=== PATIENT | female | born 2000 | race Caucasian/White ===

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

== ENCOUNTER → 2022-02-19 | Outpatient (CLI) | payer OTHER, SELFPAY ==
[2022-02-18 13:11] LABS: Chlamydia Trachomatis by PCR Negative (Negative); Neisserai gonorrhoeae by PCR Negative (Negative); Probe Check PASS; Sample Adequacy Control PASS; Specimen Processing Control PASS
== END | disposition home or self-care (01) ==
LOC: LABSPEC 10:13
PROVIDERS: PCP Pediatrics; Visit Provider Nurse Practitioner Women's Health
DX: Z11.3 Encounter for screening for infections with a predominantly sexual mode of transmission (principal)
CPT/HCPCS: 87491; 87591

== ENCOUNTER → 2024-09-30 | Outpatient (CLI) | payer BC, SELFPAY ==
[2024-10-05 12:45] LABS: HPV Reflexed? NOT INDICATED
== END | disposition home or self-care (01) ==
LOC: LABSPEC 11:50
PROVIDERS: PCP Pediatrics; Referring Provider Nurse Practitioner Women's Health; Visit Provider Nurse Practitioner Women's Health
DX: Z12.4 Encounter for screening for malignant neoplasm of cervix (principal)
CPT/HCPCS: 88175; G0145

== ENCOUNTER → 2025-03-09 | Outpatient (CLI) | payer BC, SELFPAY ==
--- OUTSIDE RECORDS SUMMARY | 2025-03-09 19:02 | XMS RPT_ITS | CCD ---
Author Organization [facility] Care Team Providers Care Dean Of Instruction Name Role Phone Bianca HECTOR, Arben Renee Unavailable Marialuisa Zayas MD Primary Care Provider Marialuisa Zayas MD Primary Care Provider MARIALUISA ZAYAS Primary Care Unavailable TRUPTI, CINTHIA Attending Unavailable MARIALUISA ZAYAS Attending Unavailable MARIALUISA ZAYAS Primary Care Unavailable MARIALUISA ZAYAS Primary Care Unavailable CINTHIA LYLES Attending Unavailable MARIALUISA ZAYAS Primary Care Unavailable MARIALUISA ZAYAS Primary Care Unavailable CINTHIA LYLES Referring Unavailable Dr. Marialuisa Zayas MD Primary Care Provider Dr. Marialuisa Zayas MD Referring Provider Candida SATELLITE PROJECT SITE MONITOR-C, Abby Attending Provider Candida SATELLITE PROJECT SITE MONITOR-C, Abby Referring Provider Marialuisa Zayas Primary Care Unavailable [place] SATELLITE PROJECT SITE MONITOR, Abby Referring Unavailable [place] SATELLITE PROJECT SITE MONITOR, Abby Attending Unavailable Marialuisa Zayas Primary Care Unavailable [place] SATELLITE PROJECT SITE MONITOR, Abby Attending Unavailable Marialuisa Zayas Referring Unavailable Marialuisa Zayas Referring Unavailable Marialuisa Zayas Primary Care Unavailable [place] SATELLITE PROJECT SITE MONITOR, Abby Attending Unavailable Dr. Marialuisa Zayas MD Primary Care Provider Dr. Marialuisa Zayas MD Referring Provider [place] SATELLITE PROJECT SITE MONITOR-C, Abby Attending Provider Medications Current Medications Medication Drug Class(es) Dates Sig (Normalized) Sig (Original) DULoxetine 20 mg delayed release oral capsule (19 sources) Serotonin and Norepinephrine Reuptake Inhibitor Start: 12-06-2022 End: 12-27-2022 take 1 capsule by mouth once daily DULoxetine (CYMBALTA) 20 mg capsule Take 1 capsule by mouth once daily for 21 days. 21 capsule 0 12/06/2022 12/27/2022 Active Start: 10-06-2019 End: 03-09-2025 take 1 capsule by mouth once daily Duloxetine 30 mg capsule,delayed release(DR/EC) Discontinued 30 mg PO DAILY February 09, 2020 2:45pm March 09, 2025 2:30pm Comment on above: Take 1 capsule by mo ut once daily. TAKE 1 CAPSULE ONCE DAILY Take 1 capsule by mo [facility] once daily for 21 days. metroNIDAZOLE 500 mg oral tablet (5 sources) Nitroimidazole Antimicrobial Start: 02-01-20 End: 02-08-20 take 1 tablet by mouth twice daily metroNIDAZOLE (FLAGYL) 500 mg tablet Take 1 tablet by mouth twice daily for 7 days. 14 tablet 0 01/31/2022 02/07/2022 Active Comment on above: Take 1 tablet by [facility] twice daily for 7 days. norethindrone acetate 5 mg oral tablet (1 source) Start: 03-09-20 Norethindrone Acetate 5 mg tablet Active 5 mg PO .COMPLEX 45 0 March 09, 2025 12:00am 5 mg PO tid until bleeding stops X 24 hr then bid to finish Rx Completed/Discontinued Medications Medication Drug Class(es) Dates Sig (Normalized) Sig (Original) amoxicillin 500 mg oral capsule (2 sources) Penicillin-class Antibacterial Start: 12-13-2020 End: 12-23-2020 take 2 capsules by mouth twice daily Amoxicillin 500 mg capsule Discontinued 1000 mg PO TWICE A DAY 40 10 0 December 13, 2020 12:00am December 22, 2020 12:00am December 23, 2020 12:01am control (2 sources) Start: 09-01-2019 End: 02-09-2020 control Discontinued 1 {tbl} PO DAILY 0 September 01, 2019 1:00am February 09, 2020 2:45pm Start: 09-01-2019 End: 02-09-2020 control Discontinued 1 {tbl} PO DAILY September 01, 2019 1:00am February 09, 2020 2:45pm doxycycline monohydrate 100 mg oral capsule (2 sources) Tetracycline-class Drug Start: 12-14-2018 End: 09-01-2019 take 1 capsule by mouth twice daily Doxycycline Monohydrate 100 mg capsule Discontinued 100 mg PO TWICE A DAY 20 December 14, 2018 12:00am September 01, 2019 3:59pm erythromycin 0.005 mg/mg ophthalmic ointment (2 sources) Macrolide, Macrolide Antimicrobial Start: 01-14-2021 End: 02-12-2021 Erythromycin 5 mg/gram (0.5 %) ointment Discontinued 0.5 [in_us] OPHTHALMIC TWICE A DAY 1 January 14, 2021 12:00am February 12, 2021 9:33am bilateral eye blepharitis Norethindrone-Ethi n Estradiol (20 sources) Estrogen Start: 08-30-2022 End: 03-09-2025 Norethindrone-Eth in Estradiol (Pirmella) 1-35 mg-mcg tablet Discontinued 1 {tbl} PO DAILY 84 August 30, 2022 2:34pm March 09, 2025 7:28am Start: 08-30-2022 Norethindrone- Ethin Estradiol (Pirmella) 1-35 mg-mcg tablet Active 1 {tbl} PO DAILY 84 August 30, 2022 2:34pm Start: 02-18-2022 End: 08-30-2022 Norethindrone-Ethin Estradio l (Pirmella) 1-35 mg-mcg tablet Discontinued 1 {tbl} PO DAILY 84 February 18, 2022 9:37am August 30, 2022 2:35pm Start: 02-18-2022 End: 08-30-2022 Norethindrone-Ethin Estradio l (Pirmella) 1-35 mg-mcg tablet Discontinued 1 {tbl} PO DAILY 84 February 18, 2022 9:37am August 30, 2022 2:35pm Start: 12-10-2021 End: 02-18-2022 Norethindrone-Ethin Estradio l (Pirmella) 1-35 mg-mcg tablet Discontinued 1 {tbl} PO DAILY 31 08December 10, 2021 1:57pm February 18, 2022 9:38am Start: 12-10-2021 End: 02-18-2022 Norethindrone-Ethin Estradio l (Pirmella) 1-35 mg-mcg tablet Discontinued 1 {tbl} PO DAILY December 10, 2021 1:57pm February 18, 2022 9:38am Start: 07-04-2021 End: 12-10-2021 Norethindrone-Ethin Estradio l (Pirmella) 1-35 mg-mcg tablet Discontinued 1 {tbl} PO DAILY 84 2 July 04, 2021 9:35am December 10, 2021 1:57pm Start: 07-04-2021 End: 12-10-2021 Norethindrone-Ethin Estradio l (Pirmella) 1-35 mg-mcg tablet Discontinued 1 {tbl} PO DAILY 84 July 04, 2021 9:35am December 10, 2021 1:57pm Start: 04-03-2021 take 1 tablet by sylvia th once daily PIRMELLA 1-35 mg-mcg per tablet Indications: Encounter for surveillance of contraceptive pills , Acne, unspecified acne type Take 1 tablet by mouth once daily. 3 Package 0 04/03/2021 Active Start: 02-12-2021 End: 07-04-2021 Norethindrone-Ethin Estradio l (Pirmella) 1-35 mg-mcg tablet Discontinued 1 {tbl} PO DAILY 84 0 February 12, 2021 9:42am July 04, 2021 9:35am Start: 02-12-2021 End: 07-04-2021 Norethindrone-Ethin Estradio l (Pirmella) 1-35 mg-mcg tablet Discontinued 1 {tbl} PO DAILY 84 February 12, 2021 9:42am July 04, 2021 9:35am Start: 01-02-2021 End: 02-12-2021 Norethindrone-Ethin Estradio l (Pirmella) 1-35 mg-mcg tablet Discontinued 1 {tbl} PO DAILY 84 0 January 02, 2021 11:09am February 12, 2021 9:42am Start: 01-02-2021 End: 02-12-2021 Norethindrone-Ethin Estradio l (Pirmella) 1-35 mg-mcg tablet Discontinued 1 {tbl} PO DAILY 84 January 02, 2021 11:09am February 12, 2021 9:42am Start: 02-09-2020 End: 01-02-2021 Norethindrone-Ethin Estradio l (Pirmella) 1-35 mg-mcg tablet Discontinued 1 {tbl} PO DAILY 84 4 February 09, 2020 12:00am January 02, 2021 11:09am Start: 02-09-2020 End: 01-02-2021 Norethindrone-Ethin Estradio l (Pirmella) 1-35 mg-mcg tablet Discontinued 1 {tbl} PO DAILY 84 February 09, 2020 12:00am January 02, 2021 11:09am Comment on above: Take 1 tablet by sylvia once daily. ISOtretinoin 20 mg oral capsule (3 sources) Retinoid Start: 02-12-2021 End: 02-18-2022 Isotretinoin (Accutane) 20 mg capsule Discontinued PO February 12, 2021 12:00am February 18, 2022 9:32am Start: 06-02-2019 ISOTRETINOIN 3 0 MG CAPS one time a day ISOTRETINOIN [id number] Arben Valenzuela MD methylPREDNISolone 4 mg oral tablet (2 sources) Corticosteroid Start: 02-10-2023 End: 09-30-2024 take 1 tablet by mouth once Methylprednisolone (Medrol (Franki)) 4 mg tablets,dose pack Discontinued 0 PO per package directions 21 0 February 10, 2023 12:00am September 30, 2024 11:14am PO PER PKG DIR naproxen 500 mg oral tablet (2 sources) Nonsteroidal Anti-inflammatory Drug Start: 02-12-2021 End: 02-18-2022 take 1 tablet by mouth every twelve hours at mealtime Naproxen 500 mg tablet Discontinued 500 mg PO Q12H 30 February 12, 2021 12:00am February 18, 2022 9:32am administer with food or milk NORETHINDRONE-ETH ESTRADIOL TABS (1 source) Start: 06-02-2019 PIRMELLA 1/35 TABS one time a day NORETHINDRONE-ETH ESTRADIOL TABS [id number] Arben Valenzuela MD premella (2 sources) Start: 02-09-2020 End: 02-12-2021 premella Discontinued PO 0 February 09, 2020 12:00am February 12, 2021 9:33am control Start: 02-09-2020 End: 02-12-2021 premella Discontinued PO Feb 12:00am February 12, 2021 9:33am spironolactone 100 mg oral tablet (13 sources) Aldosterone Antagonist Start: 11-20-2020 End: 12-06-2022 take 1 tablet by mouth once daily spironolactone (ALDACTONE) 100 mg tablet TAKE 1 TABLET BY MOUTH ONCE DAILY AT THE SAME TIME OF DAY 0 11/20/2020 12/06/2022 Discontinued Comment on above: TAKE 1 TABLET BY SYLVIA TH ONCE DAILY AT THE SAME TIME OF DAY Problems Active Problems Problem Classification Problem Date Documented Da te Episodic/Chronic Anxiety disorders (15 sources) Generalized anxiety disorder; Translations: [Generalized anxiety disorder] Onset: 12-26-2020 12-26-2020 Chronic Contraceptive and procreative management (1 source) Oral contraception; Translations: [Encounter for surveillance of contraceptive pills] Episodic Genitourinary symptoms and ill-defined conditions (2 sources) Increased frequency of urination; Translations: [Frequency of micturition] Episodic Menstrual disorders (2 sources) Dysmenorrhea; Translations: [Dysmenorrhea, unspecified] 02-12-2021 Chronic Other bone disease and musculoskeletal deformities (2 sources) Costal chondritis; Translations: [Chondrocostal junction syndrome [Tietze]] 10-08-2019 Episodic Other skin disorders (3 sources) Acne; Translations: [Acne, unspecified] Episodic Other upper respiratory infections (4 sources) Upper respiratory infection; Translations: [Acute upper respiratory infection, unspecified] 02-10-2023 Episodic Past or Other Problems Problem Classification Problem Date Documented Da te Episodic/Chronic Other screening for suspected conditions (not mental disorders or infectious disease) (1 source) Encounter for screening for malignant neoplasm of cervix; Translations: [Encounter for screening for malignant neoplasm of cervix] Onset: 10-14-2024 Episodic Other upper respiratory disease (13 sources) Vocal cord dysfunction; Translations: [Other diseases of vocal cords] Onset: 09-19-2014 09-19-2014 Episodic Spondylosis; intervertebral disc disorders; other back problems (2 sources) Chronic low back pain; Translations: [Other chronic pain] Onset: 06-02-2019 06-02-2019 Episodic Syncope (3 sources) Syncope; Translations: [Syncope and collapse] Onset: 01-30-2022 Episodic Unclassified (1 source) Problem Unclassified (2 sources) ablation to nerve endings in back 03-03-2022 Unclassified (2 sources) steroid injections into back 03-03-2022 Results Test Name Value Interpretation Reference Range Facil ity PAP I-G w/rfx hrHPV-Aptimaon 10-05-2024 ADEQ Comment Normal . [facility] Comment on above: Order Comment: Speci men Comment: [id number] Specimen Comment: Source.............Cervix Specimen Comment: LMP / Prev Treat...[id number] Specimen Comment: No. of containers..01 ThinPrep Vial Result Comment: Sati sfactory for evaluation. Endocervical and/or squamous metaplastic cells (endocervical component) are present. Performed By: #### L 7400.0353 #### [facility] [address] [place], [address] COMM . Normal . [facility] Comment on above: Order Comment: Speci men Comment: [id number] Specimen Comment: Source.............Cervix Specimen Comment: LMP / Prev Treat...[id number] Specimen Comment: No. of containers..01 ThinPrep Vial Performed By: #### L 7400.0353 #### [facility] [address] [place], [place], [id number] COMMENT Comment Normal . [facility] Comment on above: Order Comment: Speci men Comment: [id number] Specimen Comment: Source.............Cervix Specimen Comment: LMP / Prev Treat...[id number] Specimen Comment: No. of containers..01 ThinPrep Vial Result Comment: This liquid based ThinPrep(R) pap test was screened with the use of an image guided system. Performed By: #### L 7400.0353 #### [facility] [address] [place], [address] DIAG Comment Normal . [facility] Comment on above: Order Comment: Speci men Comment: [id number] Specimen Comment: Source.............Cervix Specimen Comment: LMP / Prev Treat...[id number] Specimen Comment: No. of containers..01 ThinPrep Vial Result Comment: NEGA TIVE FOR INTRAEPITHELIAL LESION OR MALIGNANCY. Performed By: #### L 7400.0353 #### [facility] [address] [place], [place], [address] HPV RFLX Comment Normal . [facility] Comment on above: Order Comment: Speci men Comment: [id number] Specimen Comment: Source.............Cervix Specimen Comment: LMP / Prev Treat...[id number] Specimen Comment: No. of containers..01 ThinPrep Vial Result Comment: The HPV DNA reflex criteria were not met with this specimen result therefore, no HPV testing was performed. Performed at: [address] [id number] Master Fisher: Maria Eugenia Cespedes MD, Phone: [phone] Performed By: #### L 7400.0353 #### [facility] [address] [place], [place], [id number] PAPSMR Comment Normal . [facility] Comment on above: Order Comment: Speci men Comment: [id number] Specimen Comment: Source.............Cervix Specimen Comment: LMP / Prev Treat...[id number] Specimen Comment: No. of containers..01 ThinPrep Vial Result Comment: The Pap smear is a screening test designed to aid in the detection of premalignant and malignant conditions of the uterine cervix. It is not a diagnostic procedure and should not be used as the sole means of detecting cervical cancer. Both false-positive and false-negative reports do occur. Performed By: #### L 7400.0353 #### [facility] [address] [place], [address] PERFORM Comment Normal . [facility] Comment on above: Order Comment: Speci men Comment: [id number] Specimen Comment: Source.............Cervix Specimen Comment: LMP / Prev Treat...[id number] Specimen Comment: No. of containers..01 ThinPrep Vial Result Comment: Kayla Lopez, Senior Java Web Developer (ASCP) Performed By: #### L 7400.0353 #### [facility] [address] [place], [place], [id number] Lisw Cyto stain Nom (C vx/Vag) [ID]Ordered By: Abby Tirado on 09-30-2024 Pap Smear Performed By Comment . [facility] Comment on above: Kayla Lopez, Cytotec hnologist (ASCP) Cytology report Cyto stain D oc (Cvx/Vag)Ordered By: Abby Tirado on 09-30-2024 Thin Prep Pap Smear Comment . [facility] Comment on above: The Pap smear is a s creening test designed to aid in thedetection of premalignant and malignant conditions of theuterine cervix. It is not a diagnostic procedure andshould not be used as the sole means of detecting cervicalcancer. Both false-positive and false-negative reports dooccur. Image-guided ThinPrep PapOrd ered By: Abby Tirado on 09-30-2024 Pap Smear Note Comment . [facility] Comment on above: This liquid based Th inPrep(R) pap test was screened withthe use of an image guided system. Image-guided liquid-based Pa pOrdered By: Abby Tirado on 09-30-2024 Pap Smear Diagnosis Comment . [facility] Comment on above: NEGATIVE FOR INTRAEP ITHELIAL LESION OR MALIGNANCY. Image-guided liquid-based ce rvical Pap w high-risk HPV+reflex to HPV 16+18Ordered By: Abby Tirado on 09-30-2024 Human Papillomavirus Screen Comment . [facility] Comment on above: The HPV DNA reflex c esteban were not met with this specimenresult therefore, no HPV testing was performed.Performed at: [address], [place], [place] [id number] Director: Maria Eugenia Cespedes MD, Phone: [phone] State [employer] Deputy Director Office Visit Reporton 09-30-2024 State Federal [employer] Deputy Director Office Visit Report [facility] [address], [address] [place] [address] OFFICE VISIT Date of Service: 09/30/24 MR#: [id number] Acct: [id number] Name: MARIAH ROPER Rep #: [id number] : 2000 Provider: KRAEN sánchez Age/Sex: 24/F [place] [facility] [place]: Signed Intake Vital Signs 02/18/22 09:33 09/30/24 10:15 09/30/24 10:19 Height 5 ft 6 in 5 ft 6 in 5 ft 6 in Weight: 166 lb 4 oz BMI 26.8 BP 100/60 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) Chief Complaint: Annual Director Of District Office Required: No Is patient in pain?: No Allergies No Known Allergies Allergy (Verified 09/30/24 10:23) Medications ???Medication ???Instructions ???Recorded ???Confirmed ???Type duloxetine 30 mg capsule,delayed 30 mg PO DAILY 02/09/20 09/30/24 H istory release norethindrone 1 mg-ethinyl 1 tab PO DAILY #84 tabs 08/30/22 0 09/30/24 Rx estradiol 35 mcg tablet (Pirmella) Is last menstrual period known: Yes Last Menstrual Period: 09/16/24 Post menopausal: No Patient : No : No PFSH Medical History URI (upper respiratory infection) Vocal cord dysfunction Back pain Surgical History steroid injections into back ablation to nerve endings in back Hx of adenoidectomy Hx of tonsillectomy Family History Other Anxiety Arthritis Cancer Hypertension Myocardial infarction Social History current occupational status: student current occupation: [employer] Smoking Status: Never smoker alcohol intake: never substance use type: does not use well-balanced diet: daily or most days caffeine: Yes (occasional) what type of physical activity do you participate in: running and other details: volleyball, basketball frequency: 5-6 times per week seatbelt use: always History 0 Elective abortions Hx Para Spontaneous abortions Hx # Term Pregnancies Ectopic pregnancies Hx # Pregnancies Multiple births # of living children HPI Encounter for routine gynecological examination Details: MARIAH ROPER is a 24 year old who presents for annual exam. Denies concerns. Not currently sexually active. Stopped OCP about a year ago. Does not want restart presently Last PAP: baseline Last mammogram: age 42 Other preventative health care screenings: Claude Female Reproductive History Last Menstrual Period: 09/16/24 Cycle Length: 21-35 Questions: metorrhagia: No and sexually active: No ROS Const Constitutional: Denies fatigue, weight gain or weight loss Cardio Card: Denies chest pain Resp Resp: Denies cough or dyspnea on exertion GI GI: Denies abdominal pain, bloating, change in stool character, constipation or vomiting : Reports as per HPI; Denies difficulty voiding, pelvic pain, urinary frequency, urinary incontinence, urinary urgency, vaginal discharge or vaginal pruritus Exam Const General: cooperative, healthy appearing, no acute distress and well developed Orientation: alert, oriented to person and oriented to place HENFL Head: normal to inspection Neck Neck: normal visual inspection Thyroid: thyroid normal Lymphatic: no lymphadenopathy noted Chest Breast inspection: normal inspection of the breasts and normal inspection of the axillae Breast palpation: normal palpation of the breasts, normal palpation of the axillae and no axillary lymphadenopathy Resp Effort Inspection: normal respiratory effort GI Palpation: soft, no masses and nontender Rectal Exam: deferred External Female Exam: normal external appearance and normal appearance of the urethra Urethra: normal appearance of the urethra and normal palpation Speculum Exam - Vagina: normal appearance of the vagina and normal vaginal discharge Speculum Exam - Cervix: normal appearance of the cervix Bimanual Exam- Vagina Uterus: normal bimanual exam, uterine size normal, uterine shape normal and non-tender Bimanual Exam- Adnexa, other: normal adnexae, no masses, normal and non-tender Pelvic Support: normal Neuro General: patient alert and patient oriented x3 Psych Affect: normal affect Coding Level of Care Code Off vis,est,prev 18-39yrs Diagnoses Encounter for gynecological examination without abnormal finding Z01.419 Gynecological examination findings: abnormal findings ABSENT Assessment and Plan Assessment and Plan (1) Encounter for routine gynecological examination: Qualifiers: Gynecological examination findings: abnormal findings ABSENT Qualified Code(s): Z01.419 - Encounter for gynecological examination (general) (routine) without abnormal (more content not included)... Normal [facility] Service comment (Unsp spec) [Interp]Ordered By: Abby Tirado on 09-30-2024 Pap Smear Comment (3) . . [facility] CNOVon 12-06-2022 CNOV Office Visit (PEDSWS ) MARIAH ROPER ([id number]) 4 F Date Time Provider Department 12/06/22 1:30 PM MARIALUISA ZAYAS During your visit today, we recorded the following information about you: Temperature Pulse Respiration Blood pressure 97.9 degrees 84/minute 14/minute 104/52 Weight Height Last Period 70.9 kg 1.695 m 11/27/22 Marialuisa Zayas MD 12/07/2022 8:12 AM Signed Chief complaint - Anxiety SUBJECTIVE: Mariah Roper 22 year old FEMALE here for med check. Patient currently taking Cymbalta 30 mg. She feels this dose has worked well for her. She also feels that she has been on medication for enough time and she would like to discuss weaning off of medication. She will be starting her senior year at college at [employer]. She does not yet know her plans for after graduation. Feels her symptoms of anxiety and depression are well controlled at this point. OBJECTIVE: BP 104/52 Pulse 84 Temp 36.6 ?C (97.9 ?F) (Temporal) Resp 14 Ht 169.5 cm (5' 6.73) Wt 70.9 kg (156 lb 6 oz) LMP 11/27/2022 BMI 24.69 kg/m? General: alert and active in no apparent distress Lungs: clear to auscultation bilaterally, good air exchange, no retractions CVS: Normal rate, regular rhythm, no murmur Abdomen: soft, nondistended, nontender, and no hepatosplenomegaly or masses Skin: No rashes, lesions or skin changes ASSESSMENT/PLAN: Marcus (generalized anxiety disorder) (primary encounter diagnosis) PHQ 9 -1 MARCUS 7 -2 Mariah seems to be doing well and her PHQ-9 and MARCUS-7 reflect this. If she would like it would be fine to go ahead and wean off her medication. Would start by switching to Cymbalta 20 mg for 3 weeks before stopping. She can send a Verient message when she decides to do this. She has several 30 mg tablets left so she may continue at the 30 mg dose until she is starting her summer of classes. A prescription was sent to pharmacy for 20 mg tablets for 3 weeks. Plan follow-up in the office for 23-year well-child check. Marialuisa Zayas MD Allergies As of Date: 12/06/2022 (No Known Allergies) Date Reviewed: 12/06/2022 Reviewed by: Danya Bosch Ma - Fully Assessed Reason for Visit: Anxiety [9] Primary Visit Diagnosis:MARCUS (generalized anxiety disorder) [F41.1] Order(s):DULoxetine (CYMBALTA) 20 mg capsuleTake 1 capsule by mouth once daily for 21 days.Disp: 21 capsuleRfl: 0 Prescriptions as of 12/07/2022 - DULoxetine (CYMBALTA) 20 mg capsule Take 1 capsule by mouth once daily for 21 days. - PIRMELLA 1-35 mg-mcg per tablet Take 1 tablet by mouth once daily. 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 Medications Discontinued During This Encounter Prescriptions - spironolactone (ALDACTONE) 100 mg tablet (Discontinued) TAKE 1 TABLET BY MOUTH ONCE DAILY AT THE SAME TIME OF DAY - DULoxetine (CYMBALTA) 30 mg capsule (Discontinued) Take 1 capsule by mouth once daily. Level of Service: OFFICE/OUTPATIENT ESTABLISHED LOW [facility] 20-29 MIN [[id number]] Disposition: Return in about 6 months (around 06/08/2023) for routine well check. Follow-up and Disposition History for Encounter Date Provider Department Center 12[id number] Encounter Status:Closed by MARIALUISA ZAYAS on 12/07/22 [facility] 02-01-2022 CNPN Telephone (UCWSTR) MRAIAH ROPER ([id number]) 4 F Date Time Provider Department 02/01/22 AGNES EASLEY [facility] During your visit today, we recorded the following information about you: Barbara Sampson LPN 02/01/2022 3:01 PM Signed ----- Message from Agnes Easley PA-C sent at 01/31/2022 1:41 PM EDT ----- Can we call lab and see what happened to the trich and yeast swab? Barbara Sampson LPN 02/01/2022 3:03 PM Signed Lab called and said that they ran the sample 3 times and even froze it and re-ran it but it would not result-they said that sometimes if there is a lot of mucus this can happen-provider notified.Barbara Sampson LPN 02/05/2022 2:13 PM Signed Provider notified.Barbara Sampson LPN Allergies As of Date: 02/01/2022 (No Known Allergies) Date Reviewed: 01/30/2022 Reviewed by: Norma Bey APRN.[facility] - Fully Assessed Reason for Visit: Results [95] Prescriptions as of 02/05/2022 - metroNIDAZOLE (FLAGYL) 500 mg tablet Take 1 tablet by mouth twice daily for 7 days. - DULoxetine (CYMBALTA) 30 mg capsule Take 1 capsule by mouth once daily. - PIRMELLA 1-35 mg-mcg per tablet Take 1 tablet by mouth once daily. 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 Patient will take the flagyl and if symptoms persist follow up with pcp or [facility] to repeat the cvtv swab. Mom agreeable with this plan/ Allergies As of Date: 01/31/2022 (No Known Allergies) Date Reviewed: 01/30/2022 Reviewed by: Norma Bey APRN.[employer] - Fully Assessed Reason for Visit: Results [95] Prescriptions as of 01/31/2022 - metroNIDAZOLE (FLAGYL) 500 mg tablet Take 1 tablet by mouth twice daily for 7 days. - DULoxetine (CYMBALTA) 30 mg capsule Take 1 capsule by mouth once daily. - PIRMELLA 1-35 mg-mcg per tablet Take 1 tablet by mouth once daily. 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 It is possible that the patient is experiencing vasovagal syncope (benign in nature); however, I recommend further work up cardiology to rule out any cardiac causes. Consult has been placed. DAVID Mendoza RN 01/31/2022 9:30 AM Signed permission noted in chart from patient ok to speak with mother. mother aware, mychart message also sent to patient. Allergies As of Date: 01/31/2022 (No Known Allergies) Date Reviewed: 01/30/2022 Reviewed by: Norma Bey APRN.[employer] - Fully Assessed Reason for Visit: Results [95] Consult [173] Primary Visit Diagnosis:Syncope, unspecified syncope type [R55] Order(s):CONSULT TO CARDIOLOGY [9004] Order #: [id number]: 1 FUTURE Prescriptions as of 01/31/2022 - metroNIDAZOLE (FLAGYL) 500 mg tablet Take 1 tablet by mouth twice daily for 7 days. - DULoxetine (CYMBALTA) 30 mg capsule Take 1 capsule by mouth once daily. - PIRMELLA 1-35 mg-mcg per tablet Take 1 tablet by mouth once daily. 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 Flagyl started and patient updated will call with rest of results as they come in. Allergies As of Date: 01/31/2022 (No Known Allergies) Date Reviewed: 01/30/2022 Reviewed by: Norma Bey APRN.[employer] - Fully Assessed Reason for Visit: Results [95] Order(s):metroNIDAZOL E (FLAGYL) 500 mg tabletTake 1 tablet by mouth twice daily for 7 days.Disp: 14 tabletRfl: 0 Prescriptions as of 01/31/2022 - metroNIDAZOLE (FLAGYL) 500 mg tablet Take 1 tablet by mouth twice daily for 7 days. - DULoxetine (CYMBALTA) 30 mg capsule Take 1 capsule by mouth once daily. - PIRMELLA 1-35 mg-mcg per tablet Take 1 tablet by mouth once daily. 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 METRONIDAZOLE 500 MG TABLET 14 t* 0 01/31/2022 02/07/2022 Route: ORAL Sig: Take 1 tablet by mouth twice daily for 7 days. Medications Discontinued During This Encounter Prescriptions - metroNIDAZOLE (FLAGYL) 500 mg tablet (Discontinued) Take 1 tablet by mouth twice daily for 7 days. Encounter Status:Closed by ESME SOSA on 01/31/22 Normal [facility] BACTERIAL VAGINOSIS AMPLIFIC ATIONon 01-30-2022 Lactobacillus crispatus+gasseri+j ensenii + Gardnerella vaginalis + Atopobium vaginae rRNA BAMBI+probe Ql (Vag fld) Positive Abnormal Negative for bacterial vaginosis [facility] Comment on above: Order Comment: Speci men Type: BLOOD SPECIMEN Ordering Facility: [facility] Address: [address] [place] [address] Performed By: #### 3 024-7, 3016-3, 34622-4, 80107-0 #### [facility] CLIA [id number] [address] [place] [address] [place] Bacteria Ur Culton 2 Bacteria identified Cx Nom (U) ORGANISM ID: 1 <10,000 CFU/ml Normal urogenital manny Normal [facility] Comment on above: Performed By: #### 3 024-7, 3016-3, 41949-5, 45787-6 #### [facility] CLIA [id number] [address] [place] [address] [place] MILENA / TRICHOMONAS AMPLIF ICATIONon 01-30-2022 C. glabrata RNA BAMBI+probe Ql (Vag fld) Specimen inhibitory to amplicification. Sample has been retested. Unable to determine the presence or absence of this target. Abnormal Negative for Milena glabrata [facility] Comment on above: Order Comment: Speci men Type: BLOOD SPECIMEN Ordering Facility: [facility] Address: [address] [place] [address] Performed By: #### 3 024-7, 3016-3, 56779-6, 30204-8 #### [facility] CLIA [id number] [address] [place] [address] [place] Milena albicans, C. dubliniensis, C. parapsilosis, and C. tropicalis RNA BAMBI+probe Ql (Vag fld) Specimen inhibitory to amplicification. Sample has been retested. Unable to determine the presence or absence of this target. Abnormal Negative for Milena species [facility] Comment on above: Order Comment: Speci men Type: BLOOD SPECIMEN Ordering Facility: [facility] Address: [address] [place] [address] Performed By: #### 3 024-7, 3016-3, 90944-2, 05269-9 #### [facility] CLIA [id number] [address] [place] [address] [place] T. vaginalis DNA BAMBI+probe Ql (Unsp spec) Specimen inhibitory to amplicification. Sample has been retested. Unable to determine the presence or absence of this target. Abnormal Negative for Trichomonas vaginalis by amplification [facility] Comment on above: Order Comment: Speci men Type: BLOOD SPECIMEN Ordering Facility: [facility] Address: [address] [place] [address] Performed By: #### 3 024-7, 3016-3, 58565-9, 61106-6 #### [facility] CLIA [id number] [address] [place] [address] [place] CBC panel Auto (Bld)on 01-30 Erythrocyte distribution width (RBC) [Ratio] 11.6 % Normal 11.5-15.0 [facility] Comment on above: Order Comment: Speci men Type: BLOOD SPECIMEN Ordering Facility: [facility] Address: [address] [place] [address] Performed By: #### 3 024-7, 3016-3, 49549-3, 89074-6 #### [facility] CLIA [id number] [address] [place] [address] [place] Hematocrit (Bld) [Volume fraction] 37.4 % Normal 36.0-46.0 [facility] Comment on above: Order Comment: Speci men Type: BLOOD SPECIMEN Ordering Facility: [facility] Address: [address] [place] [address] Performed By: #### 3 024-7, 3016-3, 73568-3, 10235-1 #### [facility] CLIA [id number] [address] [place] [address] [place] Hemoglobin (Bld) [Mass/Vol] 12.2 g/dL Normal 11.5-15.5 [facility] Comment on above: Order Comment: Speci men Type: BLOOD SPECIMEN Ordering Facility: [facility] Address: [address] [place] [address] Performed By: #### 3 024-7, 3016-3, 12700-7, 81814-5 #### [facility] CLIA [id number] [address] [place] [address] [place] MCH (RBC) [Entitic mass] 30.8 pg Normal 26.0-34.0 [facility] Comment on above: Order Comment: Speci men Type: BLOOD SPECIMEN Ordering Facility: [facility] Address: [address] [place] [address] Performed By: #### 3 024-7, 3016-3, 42762-0, 15449-7 #### [facility] CLIA [id number] [address] [place] [address] [place] MCHC (RBC) [Mass/Vol] 32.6 g/dL Normal 30.5-36.0 [facility] Comment on above: Order Comment: Speci men Type: BLOOD SPECIMEN Ordering Facility: [facility] Address: [address] [place], [place] [address] Performed By: #### 3 024-7, 3016-3, 30551-3, 32017-5 #### [facility] CLIA [id number] [address] [place] [address] [place] MCV (RBC) [Entitic vol] 94.4 fL Normal 80.0-100.0 [facility] Comment on above: Order Comment: Speci men Type: BLOOD SPECIMEN Ordering Facility: [facility] Address: [address] [place], [place] [address] Performed By: #### 3 024-7, 3016-3, 57535-4, 95966-6 #### [facility] CLIA [id number] [address] [place] [address] [place] Nucleated RBC (Bld) [#/Vol] 10*3/uL Normal <0.01 [facility] Comment on above: Order Comment: Speci men Type: BLOOD SPECIMEN Ordering Facility: [facility] Address: [address] [place] [address] Performed By: #### 3 024-7, 3016-3, 62329-1, 70481-7 #### [facility] CLIA [id number] [address] [place] [address] [place] Platelet mean volume (Bld) [Entitic vol] 10.4 fL Normal 9.0-12.7 [facility] Comment on above: Order Comment: Speci men Type: BLOOD SPECIMEN Ordering Facility: [facility] Address: [address] [place], [place] [address] Performed By: #### 3 024-7, 3016-3, 57726-9, 05582-0 #### [facility] CLIA [id number] [address] [place] [address] [place] Platelets (Bld) [#/Vol] 220 10*3/uL Normal 150-400 [facility] Comment on above: Order Comment: Speci men Type: BLOOD SPECIMEN Ordering Facility: [facility] Address: [address] [place], [place] [address] Performed By: #### 3 024-7, 3016-3, 07381-8, 86661-8 #### [facility] CLIA [id number] [address] [place] [address] [place] RBC (Bld) [#/Vol] 3.96 10*6/uL Normal 3.90-5.20 [facility] Comment on above: Order Comment: Speci men Type: BLOOD SPECIMEN Ordering Facility: [facility] Address: [address] [place] [address] Performed By: #### 3 024-7, 3016-3, 96683-4, 79589-6 #### [facility] CLIA [id number] [address] [place] [address] [place] WBC (Bld) [#/Vol] 4.33 10*3/uL Normal 3.70-11.00 [facility] Comment on above: Order Comment: Speci men Type: BLOOD SPECIMEN Ordering Facility: [facility] Address: [address] [place] [phone] Performed By: #### 3 024-7, 3016-3, 98630-5, 98709-9 #### [facility] CLIA [id number] [address] [place] [address] OF [place] CNOVon 01-30-2022 CNOV Office Visit (RUSTTR ) MARIAH ROPER ([id number]) 4 F Date Time Provider Department 01/30/22 7:45 AM NORMA BEY [facility] During your visit today, we recorded the following information about you: Temperature Pulse Respiration Blood pressure 96.9 degrees 66/minute 16/minute 102/64 Weight 71.7 kg Norma Bey APRN.[employer] 01/30/2022 8:20 AM Signed Subjective HPI Nontoxic-appearing female presents urgent care chief complaint possible UTI. Duration of symptoms few days. Associated symptoms transient dysuria with urination. History of UTIs this feels slightly different. No OTC medications. Denies any pain currently. Patient states she is sexually active. Denies concerns for STDs or . Denies any fever body aches chills nausea vomiting abdominal pain rashes vaginal discharge or urological abnormalities. Past medical history prescription medication use allergies reviewed. .Patient presents with: Urinary Frequency: burning with urination x few days, off and on PAST MEDICAL HISTORY Diagnosis Date - Contact dermatitis and other eczema, due to unspecified cause 07/30/2011 - Dermatophytosis of foot 01/14/2011 - Fracture of proximal phalanx of right hand 06/10/2012 PAST SURGICAL HISTORY Procedure Laterality Date - TONSILLECTOMY AND ADENOIDECTOMY ALLERGIES Patient has no known allergies. MEDICATIONS DULoxetine (CYMBALTA) 30 mg capsule Take 1 capsule by mouth once daily. PIRMELLA 1-35 mg-mcg per tablet Take 1 tablet by mouth once daily. spironolactone (ALDACTONE) 100 mg tablet TAKE 1 TABLET BY MOUTH ONCE DAILY AT THE SAME TIME OF DAY FAMILY HISTORY Problem Relation Age of Onset - None Mother - None Father - None Sister Social History Tobacco Use - Smoking status: Never Smoker - Smokeless tobacco: Never Used Substance Use Topics - Alcohol use: No - Drug use: Not on file BP 102/64 Pulse 66 Temp 36.1 ?C (96.9 ?F) Resp 16 Wt 71.7 kg (158 lb) LMP 05/07/2021 SpO2 98% BMI 25.33 kg/m? Review of Systems Constitutional: Negative for chills, fever and malaise/fatigue. HENT: Negative for congestion, ear discharge, ear pain, sinus pain and sore throat. Eyes: Negative for blurred vision, pain, discharge and redness. Respiratory: Negative for cough, hemoptysis, sputum production, shortness of breath, wheezing and stridor. Cardiovascular: Negative for chest pain. Gastrointestinal: Negative for abdominal pain, diarrhea, nausea and vomiting. Genitourinary: Positive for dysuria, frequency and urgency. Negative for flank pain and hematuria. Musculoskeletal: Negative for myalgias. Skin: Negative for itching and rash. Neurological: Negative for dizziness and headaches. Objective Physical Exam Constitutional: General: She is not in acute distress. Appearance: She is not diaphoretic. HENT: Head: Normocephalic. Mouth/Throat: Mouth: Mucous membranes are moist. Pharynx: Oropharynx is clear. No oropharyngeal exudate or posterior oropharyngeal erythema. Eyes: Conjunctiva/sclera: Conjunctivae normal. Pupils: Pupils are equal, round, and reactive to light. Cardiovascular: Rate and Rhythm: Normal rate and regular rhythm. Heart sounds: Normal heart sounds. Pulmonary: Effort: Pulmonary effort is normal. No tachypnea, accessory muscle usage or respiratory distress. Breath sounds: Normal breath sounds. No stridor. Abdominal: Palpations: Abdomen is soft. Tenderness: There is no abdominal tenderness. There is no right CVA tenderness, left CVA tenderness, guarding or rebound. Musculoskeletal: Cervical back: Normal range of motion and neck supple. No rigidity or tenderness. Lymphadenopathy: Cervical: No cervical adenopathy. Skin: General: Skin is warm and dry. Neurological: Mental Status: She is alert and oriented to person, place, and time. ASSESSMENT/PLAN: 1. Urinary frequency - ICD9: 788.41, ICD10: R35.0 (primary diagnosis) - UA DIP, URINE (POC) - URINE CULTURE 2. Dysuria - ICD9: 788.1, ICD10: R30.0 - MILENA / TRICHOMONAS AMPLIFICATION - BACTERIAL VAGINOSIS AMPLIFICATION Urine negative. Urine culture sent. Self vaginal swabs obtained. We will treat accordingly to test results. Patient was educated on supportive therapies. Patient will follow up with primary care provider as needed. Patient was instructed to immediately proceed to emergency room for any new, worsening, or symptoms lasting longer than anticipated. The patient's clinical presentation is otherwise unremarkable at this time. Based on exam and clinical finding, the patient is stable for discharge. Plan of care was discussed with patient. Patient verbalizes understanding and agrees to plan of care. This note was generated using [employer] software. It may contain errors in wording, punctuation, or spelling. Norma Bey APRN.[employer] Referring Provider: SELF (more content not included)... Normal [facility] Comprehensive metabolic 2000 panelon 01-30-2022 Albumin [Mass/Vol] 4.0 g/dL Normal 3.9-4.9 [facility] Comment on above: Order Comment: Speci men Type: BLOOD SPECIMEN Ordering Facility: [facility] Address: [address] [place] [address] Performed By: #### 3 024-7, 3016-3, 65366-2, 27162-7 #### [facility] CLIA [id number] [address] [place] [address] [place] ALP [Catalytic activity/Vol] 55 U/L Normal 34-123 [facility] Comment on above: Order Comment: Speci men Type: BLOOD SPECIMEN Ordering Facility: [facility] Address: [address] [place] [address] Performed By: #### 3 024-7, 3016-3, 03540-5, 52980-8 #### [facility] CLIA [id number] [address] [place] [address] [place] ALT [Catalytic activity/Vol] 10 U/L Normal 7-38 [facility] Comment on above: Order Comment: Speci men Type: BLOOD SPECIMEN Ordering Facility: [facility] Address: [address] [place] [address] Performed By: #### 3 024-7, 3016-3, 66518-8, 25344-5 #### [facility] CLIA [id number] [address] [place] [address] [place] Anion gap [Moles/Vol] 10 mmol/L Normal 9-18 [facility] Comment on above: Order Comment: Speci men Type: BLOOD SPECIMEN Ordering Facility: [facility] Address: [address] [place] [address] Performed By: #### 3 024-7, 3016-3, 91988-0, 39469-3 #### [facility] CLIA [id number] [address] [place] [address] [place] AST [Catalytic activity/Vol] 16 U/L Normal 13-35 [facility] Comment on above: Order Comment: Speci men Type: BLOOD SPECIMEN Ordering Facility: [facility] Address: [address] [place] [address] Performed By: #### 3 024-7, 3016-3, 38423-6, 79612-9 #### [facility] CLIA [id number] [address] [place] [address] [place] Bilirubin [Mass/Vol] mg/dL Low 0.2-1.3 [facility] Comment on above: Order Comment: Speci men Type: BLOOD SPECIMEN Ordering Facility: [facility] Address: [address] [place] [address] Performed By: #### 3 024-7, 3016-3, 25440-2, 16888-3 #### [facility] CLIA [id number] [address] [place] [address] [place] Calcium [Mass/Vol] 9.3 mg/dL Normal 8.5-10.2 [facility] Comment on above: Order Comment: Speci men Type: BLOOD SPECIMEN Ordering Facility: [facility] Address: [address] [place] [address] Performed By: #### 3 024-7, 3016-3, 55876-3, 50793-3 #### [facility] CLIA [id number] [address] [place] [address] [place] Chloride [Moles/Vol] 102 mmol/L Normal 97-105 [facility] Comment on above: Order Comment: Speci men Type: BLOOD SPECIMEN Ordering Facility: [facility] Address: [address] [place] [address] Performed By: #### 3 024-7, 3016-3, 02866-7, 71839-2 #### [facility] CLIA [id number] [address] [place] [address] [place] CO2 [Moles/Vol] 24 mmol/L Normal 22-30 [facility] Comment on above: Order Comment: Speci men Type: BLOOD SPECIMEN Ordering Facility: [facility] Address: [address] [place] [address] Performed By: #### 3 024-7, 3016-3, 03890-3, 79518-6 #### [facility] CLIA [id number] [address] [place] [address] [place] [facility] Creatinine [Mass/Vol] 0.94 mg/dL Normal 0.58-0.96 [facility] Comment on above: Order Comment: Daljit pandya Type: BLOOD SPECIMEN Ordering Facility: [facility] Address: [address] [place] [address] Performed By: #### 3 024-7, 3016-3, 38723-1, 89911-1 #### [facility] CLIA [id number] [address] [place] [address] OF [facility] ESTIMATED GLOMERULAR FILTRATION RATE 90 mL/min/1.73m??? Normal >=60 [facility] Comment on above: Order Comment: Daljit pandya Type: BLOOD SPECIMEN Ordering Facility: [facility] Address: [address] [place] [address] Result Comment: Naomi mated Glomerular Filtration Rate (eGFR) is calculated using the 2020 CKD-EPI creatinine equation. This equation utilizes serum creatinine, sex, and age as parameters. The creatinine assay has traceable calibration to isotope dilution-mass spectrometry. Refer to KDIGO guidelines for clinical interpretation. In patients with unstable renal function, e.g. those with acute kidney injury, the eGFR may not accurately reflect actual GFR. Performed By: #### 3 024-7, 3016-3, 98000-7, 78427-2 #### [facility] CLIA [id number] [address] [place] [address] [place] Glucose [Mass/Vol] 90 mg/dL Normal 74-99 [facility] Comment on above: Order Comment: Daljit pandya Type: BLOOD SPECIMEN Ordering Facility: [facility] Address: [address] [place] [address] Result Comment: The [place] Diabetes Association (ADA) provides guidance for cutoff values for fasting glucose and random glucose. The ADA defines fasting as no caloric intake for at least 8 hours. Fasting plasma glucose results between 100 to 125 mg/dL indicate increased risk for diabetes (prediabetes). Fasting plasma glucose results greater than or equal to 126 mg/dL meet the criteria for diagnosis of diabetes. In the absence of unequivocal hyperglycemia, results should be confirmed by repeat testing. In a patient with classic symptoms of hyperglycemia or hyperglycemic crisis, random plasma glucose results greater than or equal to 200 mg/dL meet the criteria for diagnosis of diabetes. Reference: Standards of Medical Care in Diabetes 2016, [place] Diabetes Association. Diabetes Care. 2016.39(Suppl 1). Performed By: #### 3 024-7, 3016-3, 51090-3, 29994-2 #### [facility] CLIA [id number] [address] [place] [address] [place] Potassium [Moles/Vol] 3.8 mmol/L Normal 3.7-5.1 [facility] Comment on above: Order Comment: Daljit pandya Type: BLOOD SPECIMEN Ordering Facility: [facility] Address: [address] [place] [address] Performed By: #### 3 024-7, 3016-3, 77802-8, 43541-7 #### [facility] CLIA [id number] [address] [place] [address] [place] Protein [Mass/Vol] 7.0 g/dL Normal 6.3-8.0 [facility] Comment on above: Order Comment: Daljit pandya Type: BLOOD SPECIMEN Ordering Facility: [facility] Address: [address] [place] [address] Performed By: #### 3 024-7, 3016-3, 32214-6, 07057-1 #### [facility] CLIA [id number] [address] [place] [address] [place] Sodium [Moles/Vol] 136 mmol/L Normal 136-144 [facility] Comment on above: Order Comment: Daljit pandya Type: BLOOD SPECIMEN Ordering Facility: [facility] Address: [address] [place] [address] Performed By: #### 3 024-7, 3016-3, 08706-4, 71815-2 #### [facility] CLIA [id number] [address] [place] [address] [place] Urea nitrogen [Mass/Vol] 13 mg/dL Normal 7-21 [facility] Comment on above: Order Comment: Speci men Type: BLOOD SPECIMEN Ordering Facility: [facility] Address: [address] [place] [address] Performed By: #### 3 024-7, 3016-3, 76766-9, 39666-1 #### [facility] CLIA [id number] [address] [place] [address] [place] Ferritin SerPl-mCncon 2021 Ferritin [Mass/Vol] 44.3 ng/mL Normal 14.7-205.1 [facility] Comment on above: Order Comment: Speci men Type: BLOOD SPECIMEN Ordering Facility: [facility] Address: [address] [place] [address] Performed By: #### 2 276-4 #### [facility] CLIA [id number] [address] [place] [address] [place] Iron and Iron binding capaci ty panelon 01-30-2022 Iron [Mass/Vol] 80 ug/dL Normal 41-186 [facility] Comment on above: Order Comment: Speci men Type: BLOOD SPECIMEN Ordering Facility: [facility] Address: [address] [place] [address] Performed By: #### 3 024-7, 3016-3, 73498-9, 79569-9 #### [facility] CLIA [id number] [address] [place] [address] [place] Iron binding capacity [Mass/Vol] 321 ug/dL Normal 232-386 [facility] Comment on above: Order Comment: Speci men Type: BLOOD SPECIMEN Ordering Facility: [facility] Address: [address] [place] [address] Performed By: #### 3 024-7, 3016-3, 70283-8, 29863-7 #### [facility] CLIA [id number] [address] [place] [address] STATES [place] [facility] Iron/TIBC [Molar ratio] 24.9 % Normal 15.0-57.0 [facility] Comment on above: Order Comment: Daljit pandya Type: BLOOD SPECIMEN Ordering Facility: [facility] Address: [address] [place] [address] Performed By: #### 3 024-7, 3016-3, 27140-5, 36106-0 #### [facility] CLIA [id number] [address] [place] [address] [place] T4 Free SerPl-mCncon 022 Free T4 [Mass/Vol] 1.2 ng/dL Normal 0.9-1.7 [facility] Comment on above: Order Comment: Daljit pandya Type: BLOOD SPECIMEN Ordering Facility: [facility] Address: [address] [place] [address] Performed By: #### 3 024-7, 3016-3, 39899-1, 63063-8 #### [facility] CLIA [id number] [address] [place] [address] [place] TSH SerPl-aCncon 01-30-2022 TSH Qn 2.560 m[IU]/L Normal 0.510-4.300 [facility] Comment on above: Order Comment: Daljit pandya Type: BLOOD SPECIMEN Ordering Facility: [facility] Address: [address] [place] [address] Result Comment: If t he patient is , TSH reference range varies by gestational period: First Trimester (weeks 9-12): 0.180-2.990 mIU/L Second Trimester: 0.110-3.980 mIU/L Third Trimester: 0.480-4.710 mIU/L Mark Sanchez et al. A Practical Approach for the Verifications and Determination of Site- and Trimester-Specific Reference Intervals for Thyroid Function tests in . Thyroid, 2019:29:3:412-420. Bowen E, et al. 2017 Guidelines of the [place] Thyroid Association for the Diagnosis and Management of Thyroid Disease during and the . Thyroid, 2017:27:3:315-389. Reference ranges were not locally established for this patient's age group. The normal values are based on the following source: Esthela Ochoa V. Reference Ranges for Adults and Children: Pre-analytical Considerations. [facility] Performed By: #### 3 024-7, 3016-3, 51501-4, 00541-0 #### [facility] CLIA [id number] [address] [place] [address] [place] UA DIP, URINE (POC)on 2021 BILIRUBIN UA (POCT) Negative Negative [facility] CLARITY UA (POCT) Clear [facility] COLOR UA (POCT) Yellow [facility] GLUCOSE UA (POCT) Negative Negative mg/dL [facility] HEMOGLOBIN/BLOOD UA (POCT) Negative Negative [facility] KETONE UA (POCT) Negative Negative mg/dL [facility] LEUKOCYTES UA (POCT) Negative Negative [facility] NITRITE UA (POCT) Negative Negative [facility] PH UA (POCT) 6.5 4.5 - 8.0 [facility] Protein Ql (U) Negative Negative mg/dL [facility] SPECIFIC GRAVITY UA (POCT) 1.020 1.005 - 1.030 [facility] UROBILINOGEN UA (POCT) 0.2 E.U./dL Normal E.U./dL [facility] CNOVon 01-28-2022 CNOV Office Visit (PEDSWS ) MARIAH ROPER ([id number]) 4 F Date Time Provider Department 01/28/22 1:15 PM CINTHIA LYLES [facility] During your visit today, we recorded the following information about you: Temperature Pulse Respiration Blood pressure 97.9 degrees 84/minute 16/minute 112/70 Weight 70 kg Cinthia Lyles PA-C 01/29/2022 5:14 PM Signed PEDIATRIC SICK VISIT SERVICE DATE: 01/28/2022 SUBJECTIVE: Mariah Roper is a 21 year old female who presents for evaluation of syncopal episodes x 2 over the past week. First episode occurred while in a hot shower around 10PM after work. Second episode was this past Friday around 1 PM. Patient states she was standing in her room when it happened. Reports dizziness and vision going dark prior to both episodes. Unwitnessed events, but believes they only lasted a few seconds. Upon awakening, no issues with vision. Denies chest pain and palpitations. Does not believe she hit her head or sustained any injuries; however, she did have a headache after the second episode. Fluid Intake: Drinks water throughout the day ( 3 - 4 yeti cups while at work - [employer]) Food Intake: Sporadic, will not eat occasionally as she does not feel hungry, mother pushing her to eat more regularly, eats salads Menstrual Cycle: Regular, lasts 3 days, normal flow Medications: Started taking Spironolactone again (01/24/22). Supposed to take once in the AM and once in the PM; however, has not taken her dose today Personal history of: - palpitations (too hard, too fast, skipping a beat): No - heart problems: No - hypertension: No Family history of: - Congenital heart disease: No - Cardiomyopathy: No - Arrhythmias: No - Aneurysms: No - Sudden or unexplained - Thyroid Issues: No/Unsure - Low BP: Yes - grandmother, used to pass out when younger History was obtained from: Patient Sick contacts: No known sick contacts. HISTORY: ACTIVE PROBLEM LIST Paradoxical Vocal Cord Motion Marcus (Generalized Anxiety Disorder) PAST MEDICAL HISTORY Diagnosis Date - Contact dermatitis and other eczema, due to unspecified cause 07/30/2011 - Dermatophytosis of foot 01/14/2011 - Fracture of proximal phalanx of right hand 06/10/2012 PAST SURGICAL HISTORY Procedure Laterality Date - TONSILLECTOMY AND ADENOIDECTOMY Allergies: ALLERGIES No Known Allergies Medications: DULoxetine (CYMBALTA) 30 mg capsule Take 1 capsule by mouth once daily. PIRMELLA 1-35 mg-mcg per tablet Take 1 tablet by mouth once daily. spironolactone (ALDACTONE) 100 mg tablet TAKE 1 TABLET BY MOUTH ONCE DAILY AT THE SAME TIME OF DAY REVIEW OF SYSTEMS: As above, otherwise negative OBJECTIVE: BP 112/70 (BP Site: Right Arm, BP Position: Supine) Pulse 84 Temp 36.6 ?C (97.9 ?F) (Temporal) Resp 16 Wt 70 kg (154 lb 4.8 oz) LMP 05/07/2021 BMI 24.74 kg/m? General: alert and active in no apparent distress, cooperative, pleasant Eyes: conjunctiva clear Nose: no erythema or exudate OP: moist without lesions, no erythema, no exudates Neck: supple, no adenopathy Lungs: clear to auscultation bilaterally, good air exchange, no retractions CVS: Normal rate, regular rhythm, no murmur Skin: No rashes, lesions or skin changes Orthostatic BP: Patient endorsed slight dizziness upon standing Supine: 112/70 Standin/82 ASSESSMENT/PLAN: Encounter Diagnosis ICD-10-CM 1. Syncope, unspecified syncope type R55 CBC FERRITIN BLD IRON + TIBC COMP METABOLIC PANEL TSH BLD T4 FREE/FREE THYROX - Reviewed possible causes for the syncopal episodes - Increase salt intake and fluids - CBC w/ diff, Ferritin, Iron/TIBC ordered - CMP (want fasting glucose) ordered - TSH/T4 ordered - All questions answered - Follow up dependent upon results Medical Decision Making: Problems: Moderate: New problem with uncertain prognosis Data: Unique test(s) ordered: 3+ Medical Decision Making Level: 4 - Moderate SIGNATURE: Cinthia Lyles PA-C PATIENT NAME: Mariah Roper DATE: January 28, 2022 TIME: 1:29 PM Referring Provider: SELF [200] Allergies As of Date: 01/28/2022 (No Known Allergies) Date Reviewed: 01/28/2022 Reviewed by: Chong Cruz Cma - Fully Assessed Reason for Visit: Syncope [106] Cmt: 2 times in the past week Primary Visit Diagnosis:Syncope, unspecified syncope type [R55] Order(s):CBC [SQCBC] Order #: [id number] FUTURE FERRITIN BLD [SQFERR] Order #: [id number] FUTURE IRON + TIBC [SQIRON] Order #: [id number] FUTURE COMP METABOLIC PANEL [SQCMP] Order #: [id number] FUTURE TSH BLD [SQTSH] Order #: [id number] FUTURE T4 FREE/FREE THYROX [SQFT4] Order #: [id number] FUTURE Prescriptions as of 01/29/2022 - DULoxetine (CYMBALTA) 30 mg capsule Take 1 capsule by mouth once daily. - PIRMELLA 1-35 mg-mcg per tablet Take 1 tablet by mouth once daily. (more content not included)... Normal [facility] Clinical Summary: HMSPatient IDon 06-02-2019 OOP Leonor Ordaz [facility] Work Phone: Clinical Summary: Scanned Hi story Summaryon 06-02-2019 Data entered by patient, history of past surgeries Tonsillectomy [facility] Work Phone: Data entered by patient, problem list Patient Denies Medical Problems or Conditions [facility] Work Phone: Office Visit: New - 1st visi t with practice, Rm: 3006-02-2019 NEGATED: Highlighted rowTobacco smoking status MEIS Tobacco smoking status MEIS [facility] Work Phone: NEGATED: Highlighted rowxray history of the back on 02/2017 at [facility] Work Phone: Vital Signs Date Time Vital Sign Value Performing Clinician Facility 03-09-2025 14:30-0400 Body height 167.[address] Marialuisa Zayas MD Work Phone: [facility] 03-09-2025 14:26-0400 Body mass index (BMI) [Ratio] 26.3 kg/m2 Dr. Marialuisa Zayas MD Work Phone: [facility] 03-09-2025 14:26040 Body weight 73.[address] Marialuisa Zayas MD Work Phone: [facility] 03-09-2025 14:26-0400 Diastolic blood pressure 68 mm[Hg] Dr. Marialuisa Zayas MD Work Phone: [facility] 03-09-2025 14:26-0400 Systolic blood pressure 104 mm[Hg] Dr. Marialuisa Zayas MD Work Phone: [facility] 09-30-2024 10:19-0500 Body height 167.[address] Marialuisa Zayas MD Work Phone: [facility] 09-30-2024 10:15-0500 Body mass index (BMI) [Ratio] 26.8 kg/m2 Dr. Marialuisa Zayas MD Work Phone: [facility] 09-30-2024 10:15-0500 Body weight 75.[address] Marialuisa Zayas MD Work Phone: [phone] [place] [address] 09-30-2024 10:15-0500 Diastolic blood pressure 60 mm[Hg] Dr. Marialuisa Zayas MD Work Phone: [phone] [place] [address] 09-30-2024 10:15-0500 Systolic blood pressure 100 mm[Hg] Dr. Marialuisa Zayas MD Work Phone: [facility] 12-06-2022 13:33-0400 Body height 169.5 cm Marialuisa Zayas MD Work Phone: [facility] 12-06-2022 13:33-0400 Body temperature 97.9 [degF] Marialuisa Zayas MD Work Phone: [facility] 12-06-2022 13:33-0400 Body weight 70.93 kg Marialuisa Zayas MD Work Phone: [facility] 12-06-2022 13:33-0400 Diastolic blood pressure 52 mm[Hg] Marialuisa Zayas MD Work Phone: [facility] 12-06-2022 13:33-0400 Heart rate 84 /min Marialuisa Zayas MD Work Phone: [facility] 12-06-2022 13:33-0400 Respiratory rate 14 /min Marialuisa Zayas MD Work Phone: [facility] 12-06-2022 13:33-0400 Systolic blood pressure 104 mm[Hg] Marialuisa Zayas MD Work Phone: [facility] 01-30-2022 07:40-0400 Body mass index (BMI) [Percentile] Per age and sex 80.4 % [facility] Work Phone: [facility] 01-30-2022 07:40-0400 Body temperature 96.91 [degF] [facility] Work Phone: [facility] 01-30-2022 07:40-0400 Body weight 71.67 kg [facility].[employer] Work Phone: [facility] 01-30-2022 07:40-0400 Diastolic blood pressure 64 mm[Hg] [facility] [employer] Work Phone: [facility] 01-30-2022 07:40-0400 Heart rate 66 /min [facility] Work Phone: [facility] 01-30-2022 07:40-0400 Respiratory rate 16 /min [facility] [employer] Work Phone: [facility] 01-30-2022 07:40-0400 SaO2% (BldA) [Mass fraction] 98 % [facility] [employer]ELDING [employer] Work Phone: [facility] 01-30-2022 07:40-0400 Systolic blood pressure 102 mm[Hg] [facility] [employer] Work Phone: [facility] 01-28-2022 13:27-0400 Body mass index (BMI) [Percentile] Per age and sex 77.2 % Cinthia Lyles PA-C Work Phone: [facility] 01-28-2022 13:27-0400 Body temperature 97.9 [degF] Cinthia Lyles PA-C Work Phone: [facility] 01-28-2022 13:27-0400 Body weight 69.99 kg Cinthia Lyles PA-C Work Phone: [facility] 01-28-2022 13:27-0400 Diastolic blood pressure 70 mm[Hg] Cinthia Lyles PA-C Work Phone: [facility] 01-28-2022 13:27-0400 Heart rate 84 /min Cinthia Lyles PA-C Work Phone: [facility] 01-28-2022 13:27-0400 Respiratory rate 16 /min Cinthia Lyles PA-C Work Phone: [facility] 01-28-2022 13:27-0400 Systolic blood pressure 112 mm[Hg] Cinthia Lyles PA-C Work Phone: [facility] NEGATED: Highlighted [id number] 13:17-0400 BMI (Body Mass Index) 25.11 kg/m2 [facility] Work Phone: NEGATED: Highlighted [id number] 13:17-0400 Body weight 70 kg [facility] Work Phone: NEGATED: Highlighted [id number] 13:17-0400 Body weight 70.31 kg [facility] Work Phone: NEGATED: Highlighted [id number] 13:17-0400 BP Diastolic 73 mm[Hg] [facility] Work Phone: NEGATED: Highlighted [id number] 13:17-0400 BP Systolic 111 mm[Hg] [facility] Work Phone: NEGATED: Highlighted [id number] 13:17-0400 Height 168 cm [facility] Work Phone: NEGATED: Highlighted [id number] 13:17-0400 Height 167.64 cm [facility] Work Phone: NEGATED: Highlighted [id number] 13:17-0400 Pulse (Heart Rate) 66 /min Sudhakar [facility] Work Phone: Encounters Encounter Date Encounter Type Care Provider Facility Start: 03-09-2025 End: 03-09-2025 Patient encounter procedure Abby JONES -[facility] Work Phone: Start: 03-09-2025 End: 03-09-2025 ambulatory Marialuisa Zayas Facility:[facility] Start: 09-30-2024 End: 09-30-[address] Marialuisa Zayas MD Work Phone: [facility] Work Phone: Start: 09-30-2024 End: 09-30-2024 Patient encounter procedure Abby JONES -Laboratory, Specimen Work Phone: Start: 09-30-2024 End: 09-30-2024 ambulatory Marialuisa Zayas Facility:[facility] Start: 09-30-2024 End: 09-30-2024 Patient encounter procedure Abby JONES -[facility] Work Phone: Start: 09-30-2024 End: 09-30-2024 Patient encounter status Abby GRANADOSC [facility] Start: 09-30-2024 End: 09-30-2024 ambulatory Marialuisa Zayas Facility:[facility] Start: 12-06-2022 End: 12-07-2022 ambulatory MARIALUISA ZAYAS Facility:[facility] Start: 12-06-2022 End: 12-06-2022 Office outpatient visit 15 minutes Marialuisa Zayas MD Work Phone: [facility] Comment on above: MARCUS (generalized anx iety disorder) (Primary Dx) Start: 11-27-2022 Refill Gricelda ortega MD Work Phone: [facility] Comment on above: Refill Request Start: 11-26-2022 Refill Sofi CELESTE RN.[employer] Work Phone: OB/Gynecology Comment on above: Refill Request Start: 08-29-2022 Refill Gricelda ortega MD Work Phone: [facility] Comment on above: Refill Request Start: 02-13-2022 Refill Marialuisa Zayas MD Work Phone: [facility] Comment on above: Refill Request Start: 02-08-2022 ambulatory MARIALUISA ZAYAS Facility :[facility] Start: 02-01-2022 Telephone encounter Agnes barraza PA-C Work Phone: [facility] Comment on above: Results Start: 01-31-2022 Telephone encounter Esme Sosa APRN.[employer] Work Phone: [facility] Comment on above: Results Results; Consult Start: 01-30-2022 End: 01-30-2022 ambulatory MARIALUISA ZAYAS Facility:[facility] Start: 01-30-2022 End: 01-30-2022 Patient encounter procedure Norma Bey WELDING [employer] Work Phone: [facility] Comment on above: Urinary frequency (P rimary Dx); Dysuria Start: 01-28-2022 End: 01-28-2022 ambulatory Maria Elena Carter RN NURSE [employer]INEER Comment on above: Syncope Start: 01-28-2022 End: 01-28-2022 Patient encounter procedure Cinthia Lyles PA-C Work Phone: [facility] Comment on above: Syncope, unspecified syncope type (Primary Dx) Start: 06-02-2019 End: 06-02-2019 Patient encounter procedure Arben Valenzuela MD Work Phone: [facility] [place] [facility] Work Phone: Procedures Date Procedure Procedure Detail Performing Clinician Start: 01-30-2022 Urnls dip stick/tabl et rgnt auto w/o microscopy Michael Govea WELDING [employer] Work Phone: Start: 05-18-2021 Adult depression screening assessment Maria Elena Carter RN Start: 06-02-2019 End: 06-02-2019 Adolescent tobacco screening was negative - non user Arben Valenzuela MD Work Phone: NEGATED: Highlighted rowStart: 06-02-2019 End: 06-02-2019 Documentation of current medications [facility] Plan of Treatment Date Care Activity Detail Author Start: 02-14-2025 Urine microalbumin profile DTAP,TDAP,TD (7 - Td or Tdap) [facility] Start: 04-04-2023 Influenza vaccination INFLUENZ A (Season Ended) [facility] Start: 08-04-2022 DEPRESSION ASSESSMENT DEPRESSION ASS ESSMENT [facility] Start: 05-18-2022 Adult depression screening assessment DEPRESSION SCREENING [facility] Start: 04-04-2022 Influenza vaccination INFLUENZA (#1) [facility] Start: 01-28-2022 End: 03-30-2022 CBC panel - Blood by Automated count CBC Lab Routine Syncope, unspecified syncope type Expected: 01/28/2022, Expires: 03/30/2022 [facility] Work Phone: Comment on above: Expected: 01/28/2022 , Expires: 03/30/2022 Start: 01-28-2022 End: 03-30-2022 Comprehensive metabolic 2000 panel - Serum or Plasma COMP METABOLIC PANEL Lab Routine Syncope, unspecified syncope type Expected: 01/28/2022, Expires: 03/30/2022 [facility] Work Phone: Comment on above: Expected: 01/28/2022 , Expires: 03/30/2022 Start: 01-28-2022 End: 03-30-2022 Ferritin [Mass/volume] in Serum or Plasma FERRITIN BLD Lab Routine Syncope, unspecified syncope type Expected: 01/28/2022, Expires: 03/30/2022 [facility] Work Phone: Comment on above: Expected: 01/28/2022 , Expires: 03/30/2022 Start: 01-28-2022 End: 03-30-2022 Iron and Iron binding capacity panel - Serum or Plasma IRON + TIBC Lab Routine Syncope, unspecified syncope type Expected: 01/28/2022, Expires: 03/30/2022 [facility] Work Phone: Comment on above: Expected: 01/28/2022 , Expires: 03/30/2022 Start: 01-28-2022 End: 03-30-2022 Thyrotropin [Units/volume] in Serum or Plasma TSH BLD Lab Routine Syncope, unspecified syncope type Expected: 01/28/2022, Expires: 03/30/2022 [facility] Work Phone: Comment on above: Expected: 01/28/2022 , Expires: 03/30/2022 Start: 01-28-2022 End: 03-30-2022 Thyroxine (T4) free [Mass/volume] in Serum or Plasma T4 FREE/FREE THYROX Lab Routine Syncope, unspecified syncope type Expected: 01/28/2022, Expires: 03/30/2022 [facility] Work Phone: Comment on above: Expected: 01/28/2022 , Expires: 03/30/2022 Start: 11-06-2021 COVID-19 VACCINE (3 - Booster for Pfizer series) COVID-19 VACCINE (3 - Booster for Pfizer series) [facility] Start: 08-03-2021 COVID-19 VACCINE (3 - Booster for Pfizer series) COVID-19 VACCINE (3 - Booster for Pfizer series) [facility] Start: 2020 CHLAMYDIA SCREENING (18-24) CHLAMYDIA SCREENING (18-24) [facility] Start: 2020 GC (GONORRHEA) SCREENING (18-24) GC (GONORRHEA) SCREENING (18-24) [facility] [facility] Start: 2020 HIV SCREENING HIV SCREENING [facility] Start: 06-02-2019 End: 06-02-2019 Appointment Appointment [facility] Work Phone: Start: 06-02-2019 End: 06-02-2019 Mri spinal canal lumbar w/o contrast material MRI lumbar without contrast [facility] Work Phone: Start: 2016 PEDS TO ADULT TRANSITION ANNUAL ASSESSMENT PEDS TO ADULT TRANSITION ANNUAL ASSESSMENT [facility] Start: 2012 MENINGOCOCCAL B: Consider based on risk (1 of 2 - Risk Bexsero 2-dose series) MENINGOCOCCAL B: Consider based on risk (1 of 2 - Risk Bexsero 2-dose series) [facility] Bacteria identified in Urine by Culture URINE CULTURE Microbiology Routine Urinary frequency Ordered: 01/30/2022 [facility] Work Phone: Comment on above: Ordered: 01/30/2022 BACTERIAL VAGINOSIS AMPLIFICATION BACTERIAL VAGINOSIS AMPLIFICATION Lab Routine Dysuria Ordered: 01/30/2022 [facility] Work Phone: Comment on above: Ordered: 01/30/2022 MILENA / TRICHOMONA S AMPLIFICATION MILENA / TRICHOMONAS AMPLIFICATION Lab Routine Dysuria Ordered: 01/30/2022 [facility] Work Phone: Comment on above: Ordered: 01/30/2022 [facility] c Immunizations Immunization Date Immunization Notes Care Provider Fa cili 06-08-2021 COVID-19 vaccine, ag e 12+ yr (PFIZER-BIONTECH - PURPLE TOP) Maria Elena Carter RN [facility] 05-18-2021 COVID-19 vaccine, ag e 12+ yr (PFIZER-BIONTECH - PURPLE TOP) Maria Elena Carter RN [facility] 05-18-2021 influenza, injectabl e, quadrivalent, contains preservative Maria Elena Carter RN [facility] 07-14-2019 influenza, injectabl e, quadrivalent, preservative free Maria Elena Carter RN [facility] 02-23-2019 meningococcal polysaccharide (groups A, C, Y and W-135) diphtheria toxoid conjugate vaccine (MCV4P) Maria Elena Carter RN [facility] 09-23-2015 Human Papillomavirus 9-valent vaccine Maria Elena Carter RN [facility] 06-03-2015 human papilloma viru s vaccine, quadrivalent Maria Elena Carter RN [facility] 02-14-2015 human papilloma viru s vaccine, quadrivalent Maria Elena Carter RN [facility] Work Phone: 02-14-2015 meningococcal polysaccharide (groups A, C, Y and W-135) diphtheria toxoid conjugate vaccine (MCV4P) Maria Elena Carter RN [facility] Work Phone: 02-14-2015 tetanus toxoid, redu curly diphtheria toxoid, and acellular pertussis vaccine, adsorbed Maria Elena Carter RN [facility] Work Phone: 06-19-2009 influenza virus vacc ine, live, attenuated, for intranasal use Maria Elena Carter RN [facility] Work Phone: 06-19-2009 varicella virus vaccine Maria Elena watts RN [facility] Work Phone: 06-10-2008 influenza virus vacc ine, live, attenuated, for intranasal use Maria Elena Carter RN [facility] Work Phone: 05-25-2007 diphtheria, tetanus toxoids and acellular pertussis vaccine Maria Elena Carter RN [facility] Work Phone: 05-25-2007 measles, mumps and rubella virus vaccine Maria Elena Carter RN [facility] Work Phone: 05-25-2007 poliovirus vaccine, inactivated Maria Elena Carter RN [facility] Work Phone: 08-05-2003 diphtheria, tetanus toxoids and acellular pertussis vaccine Maria Elena Carter RN [facility] Work Phone: 08-05-2003 haemophilus influenz ae type b vaccine, HbOC conjugate Maria Elena Carter RN [facility] Work Phone: 04-29-2003 measles, mumps and rubella virus vaccine Maria Elena Carter RN [facility] Work Phone: 04-29-2003 varicella virus vaccine Maria Elena watts RN [facility] Work Phone: 01-12-2003 poliovirus vaccine, inactivated Maria Elena Carter RN [facility] Work Phone: 2002 diphtheria, tetanus toxoids and acellular pertussis vaccine Maria Elena Carter RN [facility] Work Phone: 2002 haemophilus influenz ae type b vaccine, HbOC conjugate Maria Elena Carter RN [facility] Work Phone: 2002 hepatitis B vaccine, pediatric or pediatric/adolescent dosage Maria Elena Carter RN [facility] Work Phone: 2002 pneumococcal conjuga te vaccine, 7 valent Maria Elena Carter RN [facility] Work Phone: 2002 diphtheria, tetanus toxoids and acellular pertussis vaccine Maria Elena Carter RN [facility] Work Phone: 2002 haemophilus influenz ae type b vaccine, HbOC conjugate Maria Elena Carter RN [facility] Work Phone: 2002 pneumococcal conjuga te vaccine, 7 valent Maria Elena Carter RN [facility] Work Phone: 2002 poliovirus vaccine, inactivated Maria Elena Carter RN [facility] Work Phone: 2002 diphtheria, tetanus toxoids and acellular pertussis vaccine Maria Elena Carter RN [facility] Work Phone: 2002 haemophilus influenz ae type b vaccine, HbOC conjugate Maria Elena Carter RN [facility] Work Phone: 2002 pneumococcal conjuga te vaccine, 7 valent Maria Elena Carter RN [facility] Work Phone: 2002 poliovirus vaccine, inactivated Maria Elena Carter RN [facility] Work Phone: 2002 hepatitis B vaccine, pediatric or pediatric/adolescent dosage Maria Elena Carter RN [facility] Work Phone: 2002 hepatitis B vaccine, pediatric or pediatric/adolescent dosage Maria Elena Carter RN [facility] Work Phone: Payers Date Payer Category Payer Self-pay 2022 Unknown [id number] 2019 Unknown MMO MMO [employer] [id number] 2019-Present [phone] [address] [place] [address] PPO [id number] 2019 Unknown [id number] 2019 Unknown [id number] Unknown [id number] Unknown [id number] Unknown [id number] Social History Date Type Detail Facility Start: 01-09-2011 End: 02-10-2023 Tobacco smoking status NHIS Never smoked tobacco [facility] Start: 01-28-2022 End: 12-06-2022 Alcohol intake Current non-drinker of alcohol (finding) [facility] Start: 2002 Sex Assigned At Not on file [facility] Start: 01-18-2022 End: 01-30-2022 Exposure to SARS-CoV-2 (event) Not sure [facility] Start: 01-09-2011 End: 12-06-2022 Tobacco use and exposure Smokeless tobacco non-user [facility] Work Phone: Start: 10-06-2019 With Family With Family [facility] Start: 10-06-2019 Non-smoker Non-smoker [facility] Start: 10-14-2024 Sex Female (finding) [facility] Start: 2002 Sex Assigned At Female [facility] NEGATED: Highlighted rowStart: 06-02-2019 End: 06-02-2019 Alcohol use Alcohol use [facility] Work Phone: NEGATED: Highlighted rowStart: 06-02-2019 End: 06-02-2019 Details of drug misuse behavior Details of drug misuse behavior [facility] Work Phone: NEGATED: Highlighted rowStart: 06-02-2019 End: 06-02-2019 How many days of moderate to strenuous exercise, like a brisk walk, did you do in the last 7 days? How many days of moderate to strenuous exercise, like a brisk walk, did you do in the last 7 days? [facility] Work Phone: NEGATED: Highlighted rowStart: 06-02-2019 End: 06-02-2019 Assertion Never smoker [facility] Work Phone: Goals Date Patient Goal Desired Activity /State Clinical Notes 06-10-2012 to 09-30-2024 Note Date & Type Note Facility 09-30-2024 Note [facility] Pap Smear Specimen Adequacy October 01, 2024 12:59am Comment . Satisfactory for evaluation. Endocervical and/or squamous metaplasticcells (endocervical component) are present. Comment on above: Satisfactory for briseyda luation. Endocervical and/or squamous metaplasticcells (endocervical component) are present. 09-30-2024 Evaluation note Diagnosis Onset Date Resolution Encounter for routine gynecological examination noneactive September 30 10:11am [facility] Work Phone: 1(192) 887-903505-05-2023 NoteHNO ID: [id number] Author: Marialuisa Zayas MD Service: ? Author Type: Physician Type: Progress Notes Filed: 12/07/2022 8:12 AM Note Text: Chief complaint - Anxiety SUBJECTIVE: Mariah Roper 22 year old FEMALE here for med check. Patient currently taking Cymbalta 30 mg. She feels this dose has worked well for her. She also feels that she has been on medication for enough time and she would like to discuss weaning off of medication. She will be starting her senior year at college at [employer]. She does not yet know her plans for after graduation. Feels her symptoms of anxiety and depression are well controlled at this point. OBJECTIVE: BP 104/52 Pulse 84 Temp 36.6 ?C (97.9 ?F) (Temporal) Resp 14 Ht 169.5 cm (5' 6.73) Wt 70.9 kg (156 lb 6 oz) LMP 11/27/2022 BMI 24.69 kg/m? General: alert and active in no apparent distress Lungs: clear to auscultation bilaterally, good air exchange, no retractions CVS: Normal rate, regular rhythm, no murmur Abdomen: soft, nondistended, nontender, and no hepatosplenomegaly or masses Skin: No rashes, lesions or skin changes ASSESSMENT/PLAN: Marcus (generalized anxiety disorder) (primary encounter diagnosis) PHQ 9 -1 MARCUS 7 -2 Mariah seems to be doing well and her PHQ-9 and MARCUS-7 reflect this. If she would like it would be fine to go ahead and wean off her medication. Would start by switching to Cymbalta 20 mg for 3 weeks before stopping. She can send a Verient message when she decides to do this. She has several 30 mg tablets left so she may continue at the 30 mg dose until she is starting her summer of classes. A prescription was sent to pharmacy for 20 mg tablets for 3 weeks. Plan follow-up in the office for 23-year well-child check. Marialuisa Zayas [facility]05-05-2023 History of Present illness Narrative* Marialuisa Zayas MD - 12/06/2022 2:00 PM EDT Chief complaint - Anxiety SUBJECTIVE: Mariah Roper 22 year old FEMALE here for med check. Patient currently taking Cymbalta 30 mg. She feels this dose has worked well for her. She also feels that she has been on medication for enoughtime and she would like to discuss weaning off of medication. She will be starting her senior year at college at [employer]. She does not yet know her plans for after graduation. Feels her symptoms of anxiety and depression are well controlled at this point. OBJECTIVE: BP 104/52 Pulse 84 Temp 36.6 C (97.9 F) (Temporal) Resp 14 Ht 169.5 cm (5' 6.73) Wt 70.9kg (156 lb 6 oz) LMP 11/27/2022 BMI 24.69 kg/m General: alert and active in no apparent distress Lungs: clear to auscultation bilaterally, good air exchange, no retractions CVS: Normal rate, regular rhythm, no murmur Abdomen: soft, nondistended, nontender, and no hepatosplenomegaly or masses Skin: No rashes, lesions or skin changes ASSESSMENT/PLAN: Marcus (generalized anxiety disorder) (primary encounter diagnosis) PHQ 9 -1 MARCUS 7 -2 Mariah seems to be doing well and her PHQ-9 and MARCUS-7 reflect this. If she would like it would be fine to go ahead and wean off her medication. Would start by switching to Cymbalta 20 mg for 3 weeks before stopping. She can send a Adjughart message when she decides to do this. She has several 30 mg tablets left so she may continue at the 30 mg dose until she is starting her summer of classes. A prescription was sent to pharmacy for 20 mg tablets for 3 weeks. Plan follow-up in the office for 23-year well-child check. Marialuisa Zayas MD documented in this encounterC[facility] Miscellaneous Notes* Telephone Encounter - Amy Walls RN - 11/27/2022 10:55 AM EDT Adjughart message sent to patient to schedule appt Amy Walls RN * Telephone Encounter - Juana Woods LPN - 11/26/2022 1:15 PM EDT Last [facility]: greater than one year ago Verify RX Benefits Completed, No pharmacy benefits on file Last medication refill date: 08/29/2022 x 90 days Requesting 90 day supply Retail pharmacy updated: Completed Patient aware RX will be sent to pharmacy. No need to notify patient. Immunizations due: MENINGOCOCCAL B: Consider based on risk(1 of 2 - Risk Bexsero 2-dose series) Never done GC (GONORRHEA) SCREENING (18-24) Never done HIV SCREENING Never done CHLAMYDIA SCREENING (18-24) Never done COVID-19 VACCINE(3 - Booster for Pfizer series) due on 08/03/2021 DEPRESSION ASSESSMENT Never done Juana Woods LPN documented in this encounterC[facility]25-[facility]23 Miscellaneous Notes* Telephone Encounter - Janet Sheikh LPN - 11/26/2022 1:18 PM EDT Contacted pt as she has not been seen in this office since 2019. Pt stated that she sees Abby Tirado. Pt was directed to contact [place]. Janet Sheikh LPN documented in this encounterC[facility]01-26-2023 Miscellaneous Notes* Telephone Encounter - Gricelda Pemberton MD - 08/29/2022 4:48 PM EST Patient's request for medication is as follows Requested Prescriptions Pending Prescriptions Disp Refills DULoxetine (CYMBALTA) 30 mg capsule 90 capsule 0 Sig: Take 1 capsule by mouth once daily. Order entered - please phone pharmacy and notify patient. Gricelda Pemberton MD * Telephone Encounter - Juana Woods LPN - 08/29/2022 4:09 PM EST Last [facility]: 05/18/2021 Last ADHD / Med Check visit: 05/18/2021 Verify RX Benefits Completed, No pharmacy benefits on file Last medication refill date: 02/13/2022 x 90 days +2 refills -- Pt has a new insurance and can not use mail order and is in [place] for school Requesting 90 day supply Retail pharmacy updated: Completed Patient aware RX will be sent to pharmacy. No need to notify patient. Immunizations due: MENINGOCOCCAL B: Consider based on risk(1 of 2 - Risk Bexsero 2-dose series) Never done GC (GONORRHEA) SCREENING (18-24) Never done HIV SCREENING Never done CHLAMYDIA SCREENING (18-24) Never done COVID-19 VACCINE(3 - Booster for Pfizer series) due on 08/03/2021 INFLUENZA(1) due on 04/04/2022 DEPRESSION ASSESSMENT Never done Juana Woods LPN documented in this encounterC[facility] Miscellaneous Notes* Telephone Encounter - Juana Woods LPN - 02/13/2022 11:21 AM EDT Pt is taking it and would like the refill. Last [facility]: 05/18/2021 Verify RX Benefits Completed Last medication refill date: 05/18/2021 x90 days +2 refills Requesting 90 day supply Retail pharmacy updated: Completed Patient aware RX will be sent to pharmacy. No need to notify patient. Immunizations due: MENINGOCOCCAL B: Consider based on risk(1 of 2 - Risk Bexsero 2-dose series) Never done GC (GONORRHEA) SCREENING (18-24) Never done HIV SCREENING Never done CHLAMYDIA SCREENING (18-24) Never done COVID-19 VACCINE(3 - Booster for Pfizer series) due on 11/06/2021 Juana Woods LPN documented in this encounterC[facility]07-05-2022 Miscellaneous Notes* Telephone Encounter - Barbara Sampson LPN - 02/05/2022 2:13 PM EDT Provider notified.Barbara Sampson LPN * Telephone Encounter - Barbara Sampson LPN - 02/01/2022 3:01 PM EDT Lab called and said that they ran the sample 3 times and even froze it and re- ran it but it would not result-they said that sometimes if there is a lot of mucus this can happen-provider notified.Barbara Sampson LPN * Telephone Encounter - Barbara Sampson LPN - 02/01/2022 3:01 PM EDT ----- Message from Agnes Easley PA-C sent at 01/31/2022 1:41 PM EDT ----- Can we call lab and see what happened to the trich and yeast swab? documented in this encounterC[facility]06-30-2022 Miscellaneous Notes* Telephone Encounter - Agnes Easley PA-C - 01/31/2022 3:08 PM EDT I called and spoke with mother regarding error on the yeast and trich swab- permission noted in chart to speak with mom. Patient will take the flagyl and if symptoms persist follow up with pcp or [facility] to repeat the cvtv swab. Mom agreeable with this plan/ documented in this encounterC[facility]06-30-2022 Miscellaneous Notes* Telephone Encounter - Amy Walls RN - 01/31/2022 9:26 AM EDT permission noted in chart from patient ok to speak with mother. mother aware, Adjughart message also sent to patient. * Telephone Encounter - Cinthia Lyles PA-C - 01/31/2022 8:29 AM EDT Please let patient know all lab work ordered by our office came back within normal limits for age. It is possible that the patient is experiencing vasovagal syncope (benign in nature); however, I recommend further work up cardiology to rule out any cardiac causes. Consult has been placed. Cinthia Lyles PA-C documented in this encounterC[facility]06-30-2022 Miscellaneous Notes* Telephone Encounter - Esme Sosa APRN.CNP - 01/31/2022 7:47 AM EDT Positive for BV patient was notified and treatment started. Flagyl started and patient updated will call with rest of results as they come in. documented in this encounterC[facility] Clinic [facility]06-29-2022 NoteHNO ID: [id number] Author: Norma Bey APRN.JARRETT Service: ? Author Type: Nurse Practitioner Type: Progress Notes Filed: 01/30/2022 8:20 AM Note Text: Subjective HPI Nontoxic-appearing female presents urgent care chief complaint possible UTI. Duration of symptoms few days. Associated symptoms transient dysuria with urination. History of UTIs this feels slightly different. No OTC medications. Denies any pain currently. Patient states she is sexually active. Denies concerns for STDs or . Denies any fever body aches chills nausea vomiting abdominal pain rashes vaginal discharge or urological abnormalities. Past medical history prescription medication use allergies reviewed. .Patient presents with: Urinary Frequency: burning with urination x few days, off and on PAST MEDICAL HISTORY Diagnosis Date - Contact dermatitis and other eczema, due to unspecified cause 07/30/2011 - Dermatophytosis of foot 01/14/2011 - Fracture of proximal phalanx of right hand 06/10/2012 PAST SURGICAL HISTORY Procedure Laterality Date - TONSILLECTOMY AND ADENOIDECTOMY ALLERGIES Patient has no known allergies. MEDICATIONS DULoxetine (CYMBALTA) 30 mg capsule Take 1 capsule by mouth once daily. PIRMELLA 1-35 mg-mcg per tablet Take 1 tablet by mouth once daily. spironolactone (ALDACTONE) 100 mg tablet TAKE 1 TABLET BY MOUTH ONCE DAILY AT THE SAME TIME OF DAY FAMILY HISTORY Problem Relation Age of Onset - None Mother - None Father - None Sister Social History Tobacco Use - Smoking status: Never Smoker - Smokeless tobacco: Never Used Substance Use Topics - Alcohol use: No - Drug use: Not on file BP 102/64 Pulse 66 Temp 36.1 ?C (96.9 ?F) Resp 16 Wt 71.7 kg (158 lb) LMP 05/07/2021 SpO2 98% BMI 25.33 kg/m? Review of Systems Constitutional: Negative for chills, fever and malaise/fatigue. HENT: Negative for congestion, ear discharge, ear pain, sinus pain and sore throat. Eyes: Negative for blurred vision, pain, discharge and redness. Respiratory: Negative for cough, hemoptysis, sputum production, shortness of breath, wheezing and stridor. Cardiovascular: Negative for chest pain. Gastrointestinal: Negative for abdominal pain, diarrhea, nausea and vomiting. Genitourinary: Positive for dysuria, frequency and urgency. Negative for flank pain and hematuria. Musculoskeletal: Negative for myalgias. Skin: Negative for itching and rash. Neurological: Negative for dizziness and headaches. Objective Physical Exam Constitutional: General: She is not in acute distress. Appearance: She is not diaphoretic. HENT: Head: Normocephalic. Mouth/Throat: Mouth: Mucous membranes are moist. Pharynx: Oropharynx is clear. No oropharyngeal exudate or posterior oropharyngeal erythema. Eyes: Conjunctiva/sclera: Conjunctivae normal. Pupils: Pupils are equal, round, and reactive to light. Cardiovascular: Rate and Rhythm: Normal rate and regular rhythm. Heart sounds: Normal heart sounds. Pulmonary: Effort: Pulmonary effort is normal. No tachypnea, accessory muscle usage or respiratory distress. Breath sounds: Normal breath sounds. No stridor. Abdominal: Palpations: Abdomen is soft. Tenderness: There is no abdominal tenderness. There is no right CVA tenderness, left CVA tenderness, guarding or rebound. Musculoskeletal: Cervical back: Normal range of motion and neck supple. No rigidity or tenderness. Lymphadenopathy: Cervical: No cervical adenopathy. Skin: General: Skin is warm and dry. Neurological: Mental Status: She is alert and oriented to person, place, and time. ASSESSMENT/PLAN: 1. Urinary frequency - ICD9: 788.41, ICD10: R35.0 (primary diagnosis) - UA DIP, URINE (POC) - URINE CULTURE 2. Dysuria - ICD9: 788.1, ICD10: R30.0 - MILENA / TRICHOMONAS AMPLIFICATION - BACTERIAL VAGINOSIS AMPLIFICATION Urine negative. Urine culture sent. Self vaginal swabs obtained. We will treat accordingly to test results. Patient was educated on supportive therapies. Patient will follow up with primary care provider as needed. Patient was instructed to immediately proceed to emergency room for any new, worsening, or symptoms lasting longer than anticipated. The patient's clinical presentation is otherwise unremarkable at this time. Based on exam and clinical finding, the patient is stable for discharge. Plan of care was discussed with patient. Patient verbalizes understanding and agrees to plan of care. This note was generated using FanXT software. It may contain errors in wording, punctuation, or spelling. Norma Bey APRN.[facility]06-29-2022 History of Present illness Narrative* Norma Bey APRN.[facility] - 01/30/2022 7:55 AM EDT Subjective HPI Nontoxic-appearing female presents urgent care chief complaint possible UTI. Duration of symptoms few days. Associated symptoms transient dysuria with urination. History of UTIs this feels slightly different. No OTC medications. Denies any pain currently. Patient states she is sexually active. Denies concerns for STDs or . Denies any fever body aches chills nausea vomiting abdominal painrashes vaginal discharge or urological abnormalities. Past medical history prescription medication use allergies reviewed. .Patient presents with: Urinary Frequency: burning with urination x few days, off and on PAST MEDICAL HISTORY Diagnosis Date Contact dermatitis and other eczema, due to unspecified cause 07/30/2011 Dermatophytosis of foot 01/14/2011 Fracture of proximal phalanx of right hand 06/10/2012 PAST SURGICAL HISTORY Procedure Laterality Date TONSILLECTOMY & ADENOIDECTOMY <AGE 12 ALLERGIES Patient has no known allergies. MEDICATIONS DULoxetine (CYMBALTA) 30 mg capsule Take 1 capsule by mouth once daily. PIRMELLA 1-35 mg-mcg per tablet Take 1 tablet by mouth once daily. spironolactone (ALDACTONE) 100 mg tablet TAKE 1 TABLET BY MOUTH ONCE DAILY AT THE SAME TIME OF DAY FAMILY HISTORY Problem Relation Age of Onset None Mother None Father None Sister Social History Tobacco Use Smoking status: Never Smoker Smokeless tobacco: Never Used Substance Use Topics Alcohol use: No Drug use: Not on file BP 102/64 Pulse 66 Temp 36.1 C (96.9 F) Resp 16 Wt 71.7 kg (158 lb) LMP 05/07/2021 QoW157% BMI 25.33 kg/m Review of Systems Constitutional: Negative for chills, fever and malaise/fatigue. HENT: Negative for congestion, ear discharge, ear pain, sinus pain and sore throat. Eyes: Negative for blurred vision, pain, discharge and redness. Respiratory: Negative for cough, hemoptysis, sputum production, shortness of breath, wheezing and stridor. Cardiovascular: Negative for chest pain. Gastrointestinal: Negative for abdominal pain, diarrhea, nausea and vomiting. Genitourinary: Positive for dysuria, frequency and urgency. Negative for flank pain and hematuria. Musculoskeletal: Negative for myalgias. Skin: Negative for itching and rash. Neurological: Negative for dizziness and headaches. Objective Physical Exam Constitutional: General: She is not in acute distress. Appearance: She is not diaphoretic. HENT: Head: Normocephalic. Mouth/Throat: Mouth: Mucous membranes are moist. Pharynx: Oropharynx is clear. No oropharyngeal exudate or posterior oropharyngeal erythema. Eyes: Conjunctiva/sclera: Conjunctivae normal. Pupils: Pupils are equal, round, and reactive to light. Cardiovascular: Rate and Rhythm: Normal rate and regular rhythm. Heart sounds: Normal heart sounds. Pulmonary: Effort: Pulmonary effort is normal. No tachypnea, accessory muscle usage or respiratory distress. Breath sounds: Normal breath sounds. No stridor. Abdominal: Palpations: Abdomen is soft. Tenderness: There is no abdominal tenderness. There is no right CVA tenderness, left CVA tenderness, guarding or rebound. Musculoskeletal: Cervical back: Normal range of motion and neck supple. No rigidity or tenderness. Lymphadenopathy: Cervical: No cervical adenopathy. Skin: General: Skin is warm and dry. Neurological: Mental Status: She is alert and oriented to person, place, and time. ASSESSMENT/PLAN: 1. Urinary frequency - ICD9: 788.41, ICD10: R35.0 (primary diagnosis) - UA DIP, URINE (POC) - URINE CULTURE 2. Dysuria - ICD9: 788.1, ICD10: R30.0 - MILENA / TRICHOMONAS AMPLIFICATION - BACTERIAL VAGINOSIS AMPLIFICATION Urine negative. Urine culture sent. Self vaginal swabs obtained. We will treat accordingly to test results. Patient was educated on supportive therapies. Patient will follow up with primary care provider as needed. Patient was instructed to immediately proceed to emergency room for any new, worsening, or symptoms lasting longer than anticipated. The patient's clinical presentation is otherwise unremarkable at this time. Based on exam and clinical finding, the patient is stable for discharge. Plan of care was discussed with patient. Patient verbalizes understanding and agrees to plan of care. This note was generated using [employer] software. It may contain errors in wording, punctuation, or spelling. Norma Bey APRN.JARRETT documented in this encounterC[facility]22 NoteHNO ID: [id number] Author: Cinthia Lyles PA-C Service: ? Author Type: Physician Head Of Mobile Type: Progress Notes Filed: 01/29/2022 5:14 PM Note Text: PEDIATRIC SICK VISIT SERVICE DATE: 01/28/2022 SUBJECTIVE: Mariah Roper is a 21 year old female who presents for evaluation of syncopal episodes x 2 over the past week. First episode occurred while in a hot shower around 10PM after work. Second episode was this past Friday around 1 PM. Patient states she was standing in her room when it happened. Reports dizziness and vision going dark prior to both episodes. Unwitnessed events, but believes they only lasted a few seconds. Upon awakening, no issues with vision. Denies chest pain and palpitations. Does not believe she hit her head or sustained any injuries; however, she did have a headache after the second episode. Fluid Intake: Drinks water throughout the day ( 3 - 4 yeti cups while at work - [employer]) Food Intake: Sporadic, will not eat occasionally as she does not feel hungry, mother pushing her to eat more regularly, eats salads Menstrual Cycle: Regular, lasts 3 days, normal flow Medications: Started taking Spironolactone again (01/24/22). Supposed to take once in the AM and once in the PM; however, has not taken her dose today Personal history of: - palpitations (too hard, too fast, skipping a beat): No - heart problems: No - hypertension: No Family history of: - Congenital heart disease: No - Cardiomyopathy: No - Arrhythmias: No - Aneurysms: No - Sudden or unexplained - Thyroid Issues: No/Unsure - Low BP: Yes - grandmother, used to pass out when younger History was obtained from: Patient Sick contacts: No known sick contacts. HISTORY: ACTIVE PROBLEM LIST Paradoxical Vocal Cord Motion Marcus (Generalized Anxiety Disorder) PAST MEDICAL HISTORY Diagnosis Date - Contact dermatitis and other eczema, due to unspecified cause 07/30/2011 - Dermatophytosis of foot 01/14/2011 - Fracture of proximal phalanx of right hand 06/10/2012 PAST SURGICAL HISTORY Procedure Laterality Date - TONSILLECTOMY AND ADENOIDECTOMY Allergies: ALLERGIES No Known Allergies Medications: DULoxetine (CYMBALTA) 30 mg capsule Take 1 capsule by mouth once daily. PIRMELLA 1-35 mg-mcg per tablet Take 1 tablet by mouth once daily. spironolactone (ALDACTONE) 100 mg tablet TAKE 1 TABLET BY MOUTH ONCE DAILY AT THE SAME TIME OF DAY REVIEW OF SYSTEMS: As above, otherwise negative OBJECTIVE: BP 112/70 (BP Site: Right Arm, BP Position: Supine) Pulse 84 Temp 36.6 ?C (97.9 ?F) (Temporal) Resp 16 Wt 70 kg (154 lb 4.8 oz) LMP 05/07/2021 BMI 24.74 kg/m? General: alert and active in no apparent distress, cooperative, pleasant Eyes: conjunctiva clear Nose: no erythema or exudate OP: moist without lesions, no erythema, no exudates Neck: supple, no adenopathy Lungs: clear to auscultation bilaterally, good air exchange, no retractions CVS: Normal rate, regular rhythm, no murmur Skin: No rashes, lesions or skin changes Orthostatic BP: Patient endorsed slight dizziness upon standing Supine: 112/70 Standin/82 ASSESSMENT/PLAN: Encounter Diagnosis ICD-10-CM 1. Syncope, unspecified syncope type R55 CBC FERRITIN BLD IRON + TIBC COMP METABOLIC PANEL TSH BLD T4 FREE/FREE THYROX - Reviewed possible causes for the syncopal episodes - Increase salt intake and fluids - CBC w/ diff, Ferritin, Iron/TIBC ordered - CMP (want fasting glucose) ordered - TSH/T4 ordered - All questions answered - Follow up dependent upon results Medical Decision Making: Problems: Moderate: New problem with uncertain prognosis Data: Unique test(s) ordered: 3+ Medical Decision Making Level: 4 - Moderate SIGNATURE: Cinthia Lyles PA-C PATIENT NAME: Mariah Roper DATE: January 28, 2022 TIME: 1:29 [facility]06-27-2022 History of Present illness Narrative* Cinthia Lyles PA-C - 01/28/2022 1:29 PM EDT PEDIATRIC SICK VISIT SERVICE DATE: 01/28/2022 SUBJECTIVE: Mariah Roper is a 21 year old female who presents for evaluation of syncopal episodes x 2 over the past week. First episode occurred while in a hot shower around 10PM after work. Second episode was this past Friday around 1 PM. Patient states she was standing in her room when it happened. Reports dizziness and vision going dark prior to both episodes. Unwitnessed events, but believes they only lasted a few seconds. Upon awakening, no issues with vision. Denies chest pain and palpitations.Does not believe she hit her head or sustained any injuries; however, she did have a headache afterthe second episode. Fluid Intake: Drinks water throughout the day ( 3 - 4 yeti cups while at work - [employer]) Food Intake: Sporadic, will not eat occasionally as she does not feel hungry, mother pushing her toeat more regularly, eats salads Menstrual Cycle: Regular, lasts 3 days, normal flow Medications: Started taking Spironolactone again (01/24/22). Supposed to take once in the AM and once in the PM; however, has not taken her dose today Personal history of: - palpitations (too hard, too fast, skipping a beat): No - heart problems: No - hypertension: No Family history of: - Congenital heart disease: No - Cardiomyopathy: No - Arrhythmias: No - Aneurysms: No - Sudden or unexplained <age 40 years: No - Thyroid Issues: No/Unsure - Low BP: Yes - grandmother, used to pass out when younger History was obtained from: Patient Sick contacts: No known sick contacts. HISTORY: ACTIVE PROBLEM LIST Paradoxical Vocal Cord Motion Marcus (Generalized Anxiety Disorder) PAST MEDICAL HISTORY Diagnosis Date Contact dermatitis and other eczema, due to unspecified cause 07/30/2011 Dermatophytosis of foot 01/14/2011 Fracture of proximal phalanx of right hand 06/10/2012 PAST SURGICAL HISTORY Procedure Laterality Date TONSILLECTOMY & ADENOIDECTOMY <AGE 12 Allergies: ALLERGIES No Known Allergies Medications: DULoxetine (CYMBALTA) 30 mg capsule Take 1 capsule by mouth once daily. PIRMELLA 1-35 mg-mcg per tablet Take 1 tablet by mouth once daily. spironolactone (ALDACTONE) 100 mg tablet TAKE 1 TABLET BY MOUTH ONCE DAILY AT THE SAME TIME OF DAY REVIEW OF SYSTEMS: As above, otherwise negative OBJECTIVE: BP 112/70 (BP Site: Right Arm, BP Position: Supine) Pulse 84 Temp 36.6 C (97.9 F) (Temporal) Resp 16 Wt 70 kg (154 lb 4.8 oz) LMP 05/07/2021 BMI 24.74 kg/m General: alert and active in no apparent distress, cooperative, pleasant Eyes: conjunctiva clear Nose: no erythema or exudate OP: moist without lesions, no erythema, no exudates Neck: supple, no adenopathy Lungs: clear to auscultation bilaterally, good air exchange, no retractions CVS: Normal rate, regular rhythm, no murmur Skin: No rashes, lesions or skin changes Orthostatic BP: Patient endorsed slight dizziness upon standing Supine: 112/70 Standin/82 ASSESSMENT/PLAN: Encounter Diagnosis ICD-10-CM 1. Syncope, unspecified syncope type R55 CBC FERRITIN BLD IRON + TIBC COMP METABOLIC PANEL TSH BLD T4 FREE/FREE THYROX - Reviewed possible causes for the syncopal episodes - Increase salt intake and fluids - CBC w/ diff, Ferritin, Iron/TIBC ordered - CMP (want fasting glucose) ordered - TSH/T4 ordered - All questions answered - Follow up dependent upon results Medical Decision Making: Problems: Moderate: New problem with uncertain prognosis Data: Unique test(s) ordered: 3+ Medical Decision Making Level: 4 - Moderate SIGNATURE: Cinthia Lyles PA-C PATIENT NAME: Mariah Roper DATE: January 28, 2022 TIME: 1:29 PM documented in this encounterC[facility] Clinic [facility]06-27-2022 Miscellaneous Notes* Telephone Encounter - Maria Elena Carter RN - 01/28/2022 11:14 AM EDT Reason for call:Syncope episodes Outcome:Recommendation to be seen within 4 hours by HCP. Conferenced to Pinky from appointment center. Reason for Disposition [1] All other patients AND [2] now alert and feels fine(Exception: SIMPLE FAINT due to stress, pain, prolonged standing, or suddenly standing) Answer Assessment - Initial Assessment Questions 1. ONSET: Unwitnessed syncope, patient thinks she is passed out for couple of seconds 2. CONTENT: Unwitnessed; Friday on 01/23 was taking a shower and passed out. And Friday 01/26 passed out in her room but she did feel dizzy. 3. MENTAL STATUS: Patient is AxOx3 4. TRIGGER: Maybe low blood pressure because that's what my grandma has. Patient eating and drinking normally and confirms drinking enough water thru the day. Started new medication on 01/24, aldactone for acne. 5. RECURRENT SYMPTOM: Last year, in her bedroom she passed out and hit the middle of forehead on the dresser. Patient did not see a dr after the syncopal episode. 6. INJURY: Denies any current injury with recent episodes; complains of a throbbing headache after syncopal episodes. Currently she has headache pressure 5/10 7. CARDIAC SYMPTOMS:Denies 8. NEUROLOGIC SYMPTOMS: Denies 9. GI SYMPTOMS:Denies 10. OTHER SYMPTOMS: Headache 11. : control; LMP two weeks ago Protocols used: [id number] documented in this encounterC[facility]11-07-2012 History of Past illness Narrative* Problem Noted Date Resolved Date Fracture of proximal phalanx of right hand 06/1002/25/2020 Contact dermatitis and other eczema, due to unspecified cause 07/30/2011 02/25/2020 Dermatophytosis of foot 01/14/2011 02/25/20 20 documented as of this encounter (statuses as of 01/28/2022) [facility] History of Past illness Narrative* Problem Noted Date Resolved Date Fracture of proximal phalanx of right hand 06/1002/25/2020 Contact dermatitis and other eczema, due to unspecified cause 07/30/2011 02/25/2020 Dermatophytosis of foot 01/14/2011 02/25/20 20 documented as of this encounter (statuses as of 01/29/2022) [facility] History of Past illness Narrative* Problem Noted Date Resolved Date Fracture of proximal phalanx of right hand 06/1002/25/2020 Contact dermatitis and other eczema, due to unspecified cause 07/30/2011 02/25/2020 Dermatophytosis of foot 01/14/2011 02/25/20 20 documented as of this encounter (statuses as of 01/30/2022) [facility] History of Past illness Narrative* Problem Noted Date Resolved Date Fracture of proximal phalanx of right hand 06/1002/25/2020 Contact dermatitis and other eczema, due to unspecified cause 07/30/2011 02/25/2020 Dermatophytosis of foot 01/14/2011 02/25/20 20 documented as of this encounter (statuses as of 01/31/2022) [facility] History of Past illness Narrative* Problem Noted Date Resolved Date Fracture of proximal phalanx of right hand 06/1002/25/2020 Contact dermatitis and other eczema, due to unspecified cause 07/30/2011 02/25/2020 Dermatophytosis of foot 01/14/2011 02/25/20 20 documented as of this encounter (statuses as of 01/31/2022) [facility] History of Past illness Narrative* Problem Noted Date Resolved Date Fracture of proximal phalanx of right hand 06/1002/25/2020 Contact dermatitis and other eczema, due to unspecified cause 07/30/2011 02/25/2020 Dermatophytosis of foot 01/14/2011 02/25/20 20 documented as of this encounter (statuses as of 01/31/2022) [facility] History of Past illness Narrative* Problem Noted Date Resolved Date Fracture of proximal phalanx of right hand 06/1002/25/2020 Contact dermatitis and other eczema, due to unspecified cause 07/30/2011 02/25/2020 Dermatophytosis of foot 01/14/2011 02/25/20 20 documented as of this encounter (statuses as of 02/05/2022) [facility] History of Past illness Narrative* Problem Noted Date Resolved Date Fracture of proximal phalanx of right hand 06/1002/25/2020 Contact dermatitis and other eczema, due to unspecified cause 07/30/2011 02/25/2020 Dermatophytosis of foot 01/14/2011 02/25/20 20 documented as of this encounter (statuses as of 02/13/2022) [facility] History of Past illness Narrative* Problem Noted Date Resolved Date Fracture of proximal phalanx of right hand 06/1002/25/2020 Contact dermatitis and other eczema, due to unspecified cause 07/30/2011 02/25/2020 Dermatophytosis of foot 01/14/2011 02/25/20 20 documented as of this encounter (statuses as of 08/29/2022) [facility] History of Past illness Narrative* Problem Noted Date Resolved Date Fracture of proximal phalanx of right hand 06/1002/25/2020 Contact dermatitis and other eczema, due to unspecified cause 07/30/2011 02/25/2020 Dermatophytosis of foot 01/14/2011 02/25/20 20 documented as of this encounter (statuses as of 11/26/2022) [facility] History of Past illness Narrative* Problem Noted Date Resolved Date Fracture of proximal phalanx of right hand 06/1002/25/2020 Contact dermatitis and other eczema, due to unspecified cause 07/30/2011 02/25/2020 Dermatophytosis of foot 01/14/2011 02/25/20 20 documented as of this encounter (statuses as of 11/27/2022) [facility] of Past illness Narrative* Problem Noted Date Resolved Date Fracture of proximal phalanx of right hand 06/1002/25/2020 Contact dermatitis and other eczema, due to unspecified cause 07/30/2011 02/25/2020 Dermatophytosis of foot 01/14/2011 02/25/20 20 documented as of this encounter (statuses as of 11/28/2022) [facility] History of Past illness Narrative* Problem Noted Date Resolved Date Fracture of proximal phalanx of right hand 06/1002/25/2020 Contact dermatitis and other eczema, due to unspecified cause 07/30/2011 02/25/2020 Dermatophytosis of foot 01/14/2011 02/25/20 20 documented as of this encounter (statuses as of 12/07/2022) [facility] note* Diagnosis Syncope, unspecified syncope type- Primary [facility] Diagnosis Urinary frequency- Primary Dysuria [facility]* Diagnosis Syncope, unspecified syncope type- Primary [facility]* Diagnosis Encounter for surveillance of contraceptive pills Surveillance of previously prescribed contraceptive pill Acne, unspecified acne type documented [facility] this [facility]* Diagnosis MARCUS (generalized anxiety disorder)- Primary Generalized anxiety disorder documented in this encounter [facility] noteNo assessment information availableBlJacobs Medical Center Work Phone: Reason for referral (narrative)No reason for referral information availableWSelect Medical [facility] Work Phone: Chief Complaint Chief Complaint Description Start Date back pain Preliminary chief co mplaint data, not yet signed by the author as of Advance Directives There may be information available, but it has not been provided by the sender. No Advanced Directives Records FoundNo Advanced Directives Records Found Assessments There may be information available, but it has not been provided by the sender. Review of System There may be information available, but it has not been provided by the sender. Family History Relationship Condition Age at Onset Recorded Date/T charlie Not Specified Anxiety Unknown Arthritis Unknown Myocardial infarction Unknown Malignant neoplasm Unknown Hypertension Unknown History of Present Illness There may be information available, but it has not been provided by the sender. Reason for Referral Specialty Diagnoses / Procedures Referred By Contac t Referred To Contact Cardiology Diagnoses Syncope, unspecified syncope type Procedures CONSULT TO CARDIOLOGY OFFICE/OUTPATIENT [facility] HIGH MDM 60-74 MINUTES Cinthia Lyles PA-C [address] [place] [address] Referral ID Status Reason Start Date Expiration Date Visits Requested Visits Authorized [id number] Authorized PCP Requested Referral 01/31/2022 01/31/2023 1 1 Summary Purpose Chief Complaint and Reason for Visit Chief Complaint Admit Date Annual ([employer]) September 30, 2024 10:11am Reason for Visit Admit Date Encounter for routine gynecological exam ination September 30, 2024 10:11am Chief Complaint Admit Date Irregular, frequent menses $20 copay Mar [facility] 2024 2:24pm Additional Source Comments Reason for Visit (unrecogniz ed section and content) Reason For Visit Description New - 1st visit with practice Preliminary reason f or visit data, not yet signed by the author as of back pain Reason Comments Syncope Reason Comments Syncope 2 times in the past week Reason Comments Urinary Frequency burning with urinati on x few days, off and on Reason Comments Results Reason Comments Results Consult Reason Comments Refill Request Reason Onset Date Comments Refill Request 08/29/2022 Reason Onset Date Comments Refill Request 11/26/2022 Reason Comments Anxiety Source Comments (unrecognize d section and content) In the event this informatio n is protected by the Federal Confidentiality of Alcohol and Drug Abuse Patient Records regulations: The Federal rules restrict any use of the information to criminally investigate or prosecute any alcohol or drug abuse patient.[facility] the event this information is protected by the Federal Confidentiality of Alcohol and Drug Abuse Patient Records regulations: The Federal rules restrict any use of the information to criminally investigate or prosecute any alcohol or drug abuse patient.[facility] GeneralIn the event this information is protected by the Federal Confidentiality of Alcohol and Drug Abuse Patient Records regulations: The Federal rules restrict any use of the information to criminally investigate or prosecute any alcohol or drug abuse patient.[facility] GeneralIn the event this information is protected by the Federal Confidentiality of Alcohol and Drug Abuse Patient Records regulations: The Federal rules restrict any use of the information to criminally investigate or prosecute any alcohol or drug abuse patient.[facility] GeneralIn the event this information is protected by the Federal Confidentiality of Alcohol and Drug Abuse Patient Records regulations: The Federal rules restrict any use of the information to criminally investigate or prosecute any alcohol or drug abuse patient.[facility] GeneralIn the event this information is protected by the Federal Confidentiality of Alcohol and Drug Abuse Patient Records regulations: The Federal rules restrict any use of the information to criminally investigate or prosecute any alcohol or drug abuse patient.[facility] General[facility] the event this information is protected by the Federal Confidentiality of Alcohol and Drug Abuse Patient Records regulations: The Federal rules restrict any use of the information to criminally investigate or prosecute any alcohol or drug abuse patient.[facility] GeneralIn the event this information is protected by the Federal Confidentiality of Alcohol and Drug Abuse Patient Records regulations: The Federal rules restrict any use of the information to criminally investigate or prosecute any alcohol or drug abuse patient.[facility] General[facility] the event this information is protected by the Federal Confidentiality of Alcohol and Drug Abuse Patient Records regulations: The Federal rules restrict any use of the information to criminally investigate or prosecute any alcohol or drug abuse patient.[facility] the event this information is protected by the Federal Confidentiality of Alcohol and Drug Abuse Patient Records regulations: The Federal rules restrict any use of the information to criminally investigate or prosecute any alcohol or drug abuse patient.[facility] General[facility] the event this information is protected by the Federal Confidentiality of Alcohol and Drug Abuse Patient Records regulations: The Federal rules restrict any use of the information to criminally investigate or prosecute any alcohol or drug abuse patient.[facility] GeneralIn the event this information is protected by the Federal Confidentiality of Alcohol and Drug Abuse Patient Records regulations: The Federal rules restrict any use of the information to criminally investigate or prosecute any alcohol or drug abuse patient.[facility] GeneralIn the event this information is protected by the Federal Confidentiality of Alcohol and Drug Abuse Patient Records regulations: The Federal rules restrict any use of the information to criminally investigate or prosecute any alcohol or drug abuse patient.[facility] Care Teams (unrecognized sec tion and content) Dean Of Instruction Relationship Specialty Start Date End Date Marialuisa Zayas MD [address] [place] [id number] PCP - General 02 Dean Of Instruction Relationship Specialty Start Date End Date Marialuisa Zayas MD [address] [place] [id number] PCP - General 02 Dean Of Instruction Relationship Specialty Start Date End Date Marialuisa Zayas MD [address] [place] [id number] PCP - General 02 Dean Of Instruction Relationship Specialty Start Date End Date Marialuisa Zayas MD [address] [place] [id number] PCP - General 02 Dean Of Instruction Relationship Specialty Start Date End Date Marialuisa Zayas MD [address] [place] [phone] PCP - General 02 Dean Of Instruction Relationship Specialty Start Date End Date Marialuisa Zayas MD [address] [place] [id number] PCP - General 02 Dean Of Instruction Relationship Specialty Start Date End Date Marialuisa Zayas MD [address] [place] [address] PCP - General 02 Team Status: Active Member Role Status Dates Dr. Marialuisa Zayas MD Family Provider Active Dr. Marialuisa Zayas MD Primary Care Provider Active Team Status: Inactive Member Role Status Dates Dr. Marialuisa Zayas MD Primary Care Provider Active Start: September 30, 2024 End: September 30, 2024 Dr. Marialuisa Zayas MD Referring Provider Active Start: September 30, 2024 End: September 30, 2024 Abby Tirado SATELLITE PROJECT SITE MONITOR, SATELLITE PROJECT SITE MONITOR-C Attending Provider Active Start: September 30, 2024 End: September 30, 2024 Team Status: Inactive Member Role Status Dates Dr. Marialuisa Zayas MD Primary Care Provider Active Start: September 30, 2024 End: September 30, 2024 Abby Tirado SATELLITE PROJECT SITE MONITOR, SATELLITE PROJECT SITE MONITOR-C Attending Provider Active Start: September 30, 2024 End: September 30, 2024 Abby Tirado SATELLITE PROJECT SITE MONITOR, SATELLITE PROJECT SITE MONITOR-C Referring Provider Active Start: September 30, 2024 End: September 30, 2024 Team Status: Active Member Role/Relationship Status Dates Dr. Marialuisa Zayas MD Family Provider Active Dr. Marialuisa Zayas MD Primary Care Provider Active Team Status: Inactive Member Role/Relationship Status Dates Dr. Marialuisa Zayas MD Primary Care Provider Active Start: March 09, 2025 End: March 09, 2025 Dr. Marialuisa Zayas MD Referring Provider Active Start: March 09, 2025 End: March 09, 2025 Abby Tirado SATELLITE PROJECT SITE MONITOR, SATELLITE PROJECT SITE MONITOR-C Attending Provider Active Start: March 09, 2025 End: March 09, 2025 INFORMATION SOURCE (unrecogn ized section and content) DATE CREATED AUTHOR 12/11/2022 [facility] DATE CREATED AUTHOR AUTHOR'S GAYATHRIIZ ATION 03/04/2025 [facility] FOR RECORDS PERTAINING TO PATIENTS WHO ARE OR HAVE BEEN ENROLLED IN A CHEMICAL DEPENDENCY/SUBSTANCEABUSE PROGRAM, SOME INFORMATION MAY BE OMITTED. This clinical summary was aggregated from multiple sources. Caution should be exercised in using it in the provision of clinical care. This summary normalizes information from multiple sources, and as a consequence, information in this document may materially change the coding, format and clinical context of patient data. In addition, data may be omitted in some cases. CLINICAL DECISIONS SHOULD BE BASED ON THE PRIMARY CLINICAL RECORDS. [facility]. provides no warranty or guarantee of the accuracy or completeness of information in this document.
[2025-03-11 20:08] LABS: Chlamydia By Nucleic Acid AMP Negative (Negative); Gonococcus By Nucleic Acid AMP Negative (Negative)
== END | disposition home or self-care (01) ==
LOC: LABSPEC 16:29
PROVIDERS: PCP Pediatrics; Visit Provider Nurse Practitioner Women's Health
DX: N93.9 Abnormal uterine and vaginal bleeding, unspecified (principal)
CPT/HCPCS: 87070; 87205; 87491; 87591